=== PATIENT | female | born 1930 | race Caucasian/White ===

== ENCOUNTER 2018-03-11 18:27 | Inpatient (IN) | payer OTHER, MEDICARE ==
[2018-03-11 18:54] VITALS: BMI 21.1
[2018-03-11] MEDS ORDERED: ACETAMINOPHEN 1000 MG/100 ML VIAL (NON FORMULARY) IVPB ONE (19:18)
[2018-03-11] MEDS ORDERED: SODIUM CHLORIDE 0.9% 500 ML INFUS.BAG IV ONE (19:18)
--- NOTE | 2018-03-11 19:18 | PDOC ---
History of Present Illness <JamieKaterina - Last Filed: 03/11/18 21:41> - General History Source: Patient, Family Exam Limitations: Dementia - History of Present Illness Initial Comments: This is an 87 YOF with h/o recurrent UTI, falls, NIDDM, A-fib (on Eliquis), lung mass, endometrial CA, and C2 odontoid fracture (colalr placed but no surgical repair d/t osteoporosis) who p/w right hip pain s/p GLF at home at about 6 pm. Family note that she had an unwitnessed fall, which they believe was when she was trying to stand up from her bed. The daughter lives in the same home and notes that the patient was upstairs in her bedroom, then began pounding on the floor as she does whenever she falls. The patient has since been unable to walk or move her right leg at the hip. She normally ambulates alone without a walker or cane. The pain is isolated to the right groin ( patient points to inguinal crease). She felt "under the weather" all day today, with body aches, per the family. She was treated with Macrobid for a UTI up until last week. She had a few subsequent episodes of diarrhea but otherwise has not had any recent symptoms per the family. The patient herself is not able to provide the bulk of her medical history 2/2 suspected dementia. <RoxFarrah - Last Filed: 03/12/18 19:25> - General Chief Complaint: Injury Stated Complaint: FALL Time Seen by Provider: 03/11/18 18:46 Past History <JamieKaterina - Last Filed: 03/11/18 21:41> - Past Medical History Cancer: Yes (endometrial) Cardiac Disorders: Yes COPD: No Dementia: Yes Diabetes: Yes GI Disorders: Yes (gluten intolerance, HIATAL HERNIA) Disorders: Yes (prolapsed bladder, UTI) HTN: Yes Hypercholesterolemia: Yes - Surgical History Appendectomy: Yes - Immunization History Td Vaccination: Yes Immunization Up to Date: No - Suicide/Smoking/Psychosocial Hx Smoking Status: No Smoking History: Never smoked Have you smoked in the past 12 months: No Number of Cigarettes Smoked Daily: 0 Hx Alcohol Use: No Drug/Substance Use Hx: No Substance Use Type: None Hx Substance Use Treatment: No <RoxFarrah - Last Filed: 03/12/18 19:25> - Past Medical History Allergies/Adverse Reactions: Allergies Allergy/AdvReac Type Severity Reaction Status Date / Time lactose Allergy Verified 03/12/18 10:37 codeine [Codeine] AdvReac hyper Verified 03/11/18 18:41 Home Medications: Ambulatory Orders Calcium Carbonate/Vitamin D3 [Calcium 600-Vit D3 200 Tablet] 1 each PO DAILY #0 tablet 05/15/12 Cholecalciferol (Vitamin D3) [Vitamin D] 2,000 unit PO DAILY #0 tablet 05/15/12 Multivitamin [Multivitamins] 1 each PO DAILY #0 capsule 05/15/12 Cyanocobalamin [Vitamin B12 -] 1,000 mcg PO DAILY 12/14/14 Tramadol HCl 37.5 mg PO PRN 12/14/14 metFORMIN HCL [Glucophage -] 1,000 mg PO BID 12/14/14 Enalapril Maleate [Vasotec -] 20 mg PO BID 10/15/17 Rivaroxaban [Xarelto -] 20 mg PO DAILY 10/15/17 predniSONE [Deltasone -] 5 mg PO DAILY 10/15/17 Atorvastatin Ca [Lipitor] 10 mg PO HS 03/11/18 Gabapentin 100 mg PO BID 03/11/18 Sertraline HCl 25 mg PO BID 03/11/18 Trauma Specific PMHX - Complaint Specific PMHX Neck Injury: Yes <Farrah Gramajo - Last Filed: 03/12/18 19:25> Review of Systems - Review of Systems Able to Perform ROS?: No (dementia) <Gramajo,Farrah - Last Filed: 03/12/18 19:25> *Physical Exam - Vital Signs Last Vital Signs Temp Pulse Resp BP Pulse Ox 98.7 F 53 L 16 161/64 97 03/11/18 19:18 03/11/18 19:18 03/11/18 19:18 03/11/18 19:18 03/11/18 19:18 <Katerina Ayala - Last Filed: 03/11/18 21:41> - Vital Signs Last Vital Signs Temp Pulse Resp BP Pulse Ox 53 L 16 161/64 95 03/11/18 18:43 03/11/18 18:43 03/11/18 18:43 03/11/18 18:43 - Physical Exam General Appearance: Yes: Nourished, Other (nontoxic and well appearing elderly female, appears a bit younger than her stated age, appears comfortable at rest but winces in pain with any repositioning, answers simple questions appropriately but unable to provide ). No: Apparent Distress HEENT: positive: EOMI, SEDA, Normal ENT Inspection, Normal Voice, Hearing Grossly Normal, Other (no scalp contusion, no cephalohematoma, no scalp laceration, no raccoon eyes, no carmona sign, no hemotympanum, no CSF rhinorrhea/ otorrhea). negative: Scleral Icterus (R), Scleral Icterus (L), Nasal Congestion Neck: positive: Trachea midline, Supple. negative: Tender, Rigid Respiratory/Chest: positive: Lungs Clear, Normal Breath Sounds, Other (equal bilateral breath sounds, no flail chest). negative: Respiratory Distress, Crackles, Rhonchi, Stridor, Wheezing Cardiovascular: positive: Regular Rhythm, Regular Rate. negative: Murmur Vascular Pulses: Femoral (R): 2+, Femoral (L): 2+ Comments:: DP pulses 2+ and equal bilaterally Gastrointestinal/Abdominal: positive: Normal Bowel Sounds, Soft. negative: Tender, Organomegaly, Pulsatile Mass, Guarding Musculoskeletal: positive: Normal Inspection. negative: Decreased Range of Motion, Vertebral Tenderness Extremity: positive: Normal Capillary Refill, Normal Inspection, Normal Range of Motion, Other (RLE 1-cm shortening and mild external rotation, very painful with minimal ROM, pelvis stable, no thigh hematoma, moving all extremities, ). negative: Tender, Cyanosis Integumentary: positive: Normal Color, Dry, Warm. negative: Erythema, Rash, Bruising Neurologic: positive: resident athletic trainer II-XII NML intact, Alert, Normal Mood/Affect, Normal Response, Motor Strength 5/5, Responsive (normal), Confused. negative: Fully Oriented, EOM Palsy, Facial Droop, Numbness, Sensory Deficit <Farrah Gramajo - Last Filed: 03/12/18 19:25> Heart Score/ECG Review #1 SR rate of 60 with sinus arrhythmia, normal axis and intervals, no ischemic changes <Farrah Gramajo Last Filed: 03/12/18 19:25> ED Treatment Course - LABORATORY CBC & Chemistry Diagram: 03/11/18 19:27 03/11/18 19:27 - ADDITIONAL ORDERS Additional order review: Laboratory Results 03/11/18 03/11/18 03/11/18 19:27 19:27 19:27 PT with INR INR PTT (Actin FS) Sodium 140 Potassium 4.9 Chloride 104 Carbon Dioxide 30 Anion Gap 6 L BUN 23 H Creatinine 0.6 Creat Clearance w eGFR > 60 Random Glucose 113 H Calcium 9.3 Phosphorus 4.1 Magnesium 1.8 Total Bilirubin 0.4 AST 19 ALT 21 Alkaline Phosphatase 64 Creatine Kinase 29 Troponin I < 0.02 Total Protein 6.3 L Albumin 3.4 Blood Type A POSITIVE Antibody Screen Negative 03/11/18 19:27 PT with INR 11.00 INR 0.97 PTT (Actin FS) 26.0 L Sodium Potassium Chloride Carbon Dioxide Anion Gap BUN Creatinine Creat Clearance w eGFR Random Glucose Calcium Phosphorus Magnesium Total Bilirubin AST ALT Alkaline Phosphatase Creatine Kinase Troponin I Total Protein Albumin Blood Type Antibody Screen 03/11/18 19:27 RBC 4.54 MCV 87.8 MCHC 32.9 RDW 14.5 MPV 8.9 Neutrophils % 80.0 Lymphocytes % 12.8 Monocytes % 5.4 Eosinophils % 1.5 D Basophils % 0.3 - Medications Given in the ED: ED Medications Discontinued Medications Generic Name Dose Route Start Last Admin Trade Name Temoq PRN Reason Stop Dose Admin Acetaminophen 1,000 mg 03/11/18 19:18 03/11/18 20:01 Ofirmev Injection - IVPB 03/11/18 19:19 1,000 mg ONCE ONE Administration Sodium Chloride 1,000 ml 03/11/18 19:18 03/11/18 20:01 Normal Saline - IV 03/11/18 19:19 1,000 ml ONCE ONE Administration - Additional Consults Time Called: 21:41 (Paged ortho exceptional children's teacher) <Katerina Ayala - Last Filed: 03/11/18 21:41> - LABORATORY CBC & Chemistry Diagram: 03/12/18 06:10 03/12/18 06:10 <Farrah Gramajo - Last Filed: 03/12/18 19:25> Medical Decision Making - Medical Decision Making 03/11/18 19:21 Elderly patient p/w GLF with subsequent hip pain. Initial Vital Signs Pulse Resp BP Pulse Ox 53 L 16 161/64 95 03/11/18 18:43 03/11/18 18:43 03/11/18 18:43 03/11/18 18:43 Exam: As noted in Physical Exam section. DDX IBNLT: hip/pelvis/femur fxr, hip dislocation, thigh hematoma, compartment syndrome, sprain/strain, contusion, etc. W/U ordered: XR Rt hip/pelvis Head CT C-Spine CT CBCD CMP Cardiac Panel Coags T& S UA UCx EKG CXR TX ordered: [facility] NPO until further notice. CXR: nothing acute. XR Hip and Pelvis: Mildly displaced acute fractures through the right superior and inferior rami. C-spine CT: nothing acute; nonunion type II odontoid fracture as previously reported by patient; degenerative changes. Head CT: Possible right sphenoid sinusitis, otherwise nothing acute. Straight cath ordered for UA; will avoid placing Val[place] for now. Laboratory Tests 03/11/18 03/11/18 03/11/18 19:27 19:27 19:27 WBC 8.7 RBC 4.54 Hgb 13.1 Hct 39.9 MCV 87.8 MCH 28.9 MCHC 32.9 RDW 14.5 Plt Count 232 D MPV 8.9 Absolute Neuts (auto) 6.9 Neutrophils % 80.0 Lymphocytes % 12.8 Monocytes % 5.4 Eosinophils % 1.5 D Basophils % 0.3 Nucleated RBC % 0 PT with INR 11.00 INR 0.97 PTT (Actin FS) 26.0 L Sodium 140 Potassium 4.9 Chloride 104 Carbon Dioxide 30 Anion Gap 6 L BUN 23 H Creatinine 0.6 Creat Clearance w eGFR > 60 Random Glucose 113 H Calcium 9.3 Phosphorus 4.1 Magnesium 1.8 Total Bilirubin 0.4 AST 19 ALT 21 Alkaline Phosphatase 64 Creatine Kinase Troponin I Total Protein 6.3 L Albumin 3.4 Blood Type Antibody Screen 03/11/18 03/11/18 19:27 19:27 WBC RBC Hgb Hct MCV MCH MCHC RDW Plt Count MPV Absolute Neuts (auto) Neutrophils % Lymphocytes % Monocytes % Eosinophils % Basophils % Nucleated RBC % PT with INR INR PTT (Actin FS) Sodium Potassium Chloride Carbon Dioxide Anion Gap BUN Creatinine Creat Clearance w eGFR Random Glucose Calcium Phosphorus Magnesium Total Bilirubin AST ALT Alkaline Phosphatase Creatine Kinase 29 Troponin I < 0.02 Total Protein Albumin Blood Type A POSITIVE Antibody Screen Negative Reassessment: Exam unchanged, patient denies complaints at rest. ADMIT Page sent to orthopedist exceptional children's teacher. Spoke with orthopedist who agrees with plan for admission. Consult order placed to Ortho Dr. Puga; I spoke with Dr. Puga at 9:45 pm. Microblog sent to Bibi (admitting for Pts PCP). Spoke with Bibi; in agreement Pt to be admitted to Inpatient Med/Surg. Decision to Admit order placed to admitting team covering attending Dr. Wise. <Farrah Gramajo - Last Filed: 03/12/18 19:25> *DC/Admit/Observation/Transfer <Katerina Ayala - Last Filed: 03/11/18 21:41> - Discharge Dispostion Decision to Admit order: Yes <Farrah Gramajo - Last Filed: 03/12/18 19:25> Diagnosis at time of Disposition: Fall from ground level Pelvic fracture Qualifiers: Encounter type: initial encounter Pelvic bone location: unspecified part of pelvis Fracture type: closed Fracture alignment: nondisplaced Qualified Code(s) : S32.9XXA - Fracture of unspecified parts of lumbosacral spine and pelvis, initial encounter for closed fracture - Discharge Dispostion Condition at time of disposition: Guarded
[2018-03-11] MEDS ORDERED: ACETAMINOPHEN INJECTION 100 ML IVPB ONE (19:31)
[2018-03-11 19:38] LABS: BASO % 0.3 % (0-2.0); EOS % 1.5 % (0-4.5); HEMATOCRIT 39.9 % (32.4-45.2); HEMOGLOBIN 13.1 GM/dL (10.7-15.3); LYMPH % 12.8 % (8-40); MCH 28.9 pg (25.7-33.7); MCHC 32.9 g/dl (32.0-36.0); MEAN CELL VOLUME 87.8 fl (80-96); MEAN PLT VOLUME 8.9 fl (7.5-11.1); MONO % 5.4 % (3.8-10.2); PLATELET COUNT 232 K/MM3 (134-434); RBC 4.54 M/mm3 (3.60-5.2); RDW 14.5 % (11.6-15.6); WHITE BLOOD COUNT 8.7 K/mm3 (4.0-10.0)
[2018-03-11 19:51] LABS: INR 0.97 (0.82-1.09)
--- NOTE | 2018-03-11 19:55 | PDOC ---
Attending Attestation - HPI HPI: The patient is an 87 year old female with PMHx of recurrent UTI, falls, NIDDM, A -fib (on Eliquis), lung mass, endometrial CA, and C2 odontoid fracture (with collar placement) presenting with right hip pain s/p unwitnessed fall at home at around 6 pm. The patients daughter found her on her on the floor unable to ambulate or move right leg at hip. She normally ambulates with cane/walker. The patient also notes feeling under the weather all day with associated body aches. She also notes a few episodes for diarrhea. Medical history from patient is not sufficient due to suspected dementia. 03/12/18 00:17 <Katerina Ayala - Last Filed: 03/12/18 00:17> - Resident Resident Name: Farrah Gramajo - ED Attending Attestation I have performed the following: I have examined & evaluated the patient, The case was reviewed & discussed with the resident, I agree w/resident's findings & plan, Exceptions are as noted - Physicial Exam PE: GENERAL: Awake, alert, and fully oriented, in no acute distress HEAD: No signs of trauma EYES: PERRLA, EOMI, sclera anicteric, conjunctiva clear ENT: Auricles normal inspection, hearing grossly normal, nares patent, oropharynx clear without exudates. Moist mucosa NECK: Normal ROM, supple, no lymphadenopathy, JVD, or masses LUNGS: Breath sounds equal, clear to auscultation bilaterally. No wheezes, and no crackles HEART: Regular rate and rhythm, normal S1 and S2, no murmurs, rubs or gallops ABDOMEN: Soft, nontender, normoactive bowel sounds. No guarding, no rebound. No masses. +Tenderness to the R groin/pelvis. EXTREMITIES: Normal range of motion, no edema. No clubbing or cyanosis. No cords, erythema, or tenderness NEUROLOGICAL: Cranial nerves II through XII grossly intact. Normal speech. Motor and sensation intact. Gait not tested due to nature of complaint. SKIN: Warm, Dry, normal turgor, no rashes or lesions noted. - Medical Decision Making Patient with R pelvic fracture, will plan for admission. Will obtain labs and urine. <Mari Keen - Last Filed: 03/12/18 00:24>
[2018-03-11 20:06] LABS: ALBUMIN 3.4 g/dl (3.4-5.0); ALK PHOS 64 U/L (45-117); ANION GAP 6 (8-16); BILIRUBIN,TOTAL 0.4 mg/dL (0.2-1.0); BLOOD UREA NITROGEN 23 mg/dL (7-18); CALCIUM 9.3 mg/dL (8.5-10.1); CHLORIDE 104 mmol/L (98-107); CO2 30 mmol/L (21-32); CREATININE 0.6 mg/dL (0.55-1.02); GLUCOSE,RANDOM 113 mg/dL (74-106); MAGNESIUM 1.8 mg/dL (1.8-2.4); PHOSPHOROUS 4.1 mg/dL (2.5-4.9); POTASSIUM 4.9 mmol/L (3.5-5.1); SGOT/AST 19 U/L (15-37); SGPT/ALT 21 U/L (12-78); SODIUM 140 mmol/L (136-145); TOT PROT 6.3 g/dl (6.4-8.2)
[2018-03-11] MEDS ORDERED: traMADol HCL 50 MG TABLET PO ONE (21:51)
[2018-03-11 22:18] LABS: URINE APPEARANCE SLCLOUDY; URINE BILIRUBIN NEGATIVE (<2.0 mg/dL); URINE COLOR AMBER; URINE GLUCOSE (UA) NEGATIVE (NEGATIVE); URINE KETONE NEGATIVE (NEGATIVE); URINE NITRITE NEGATIVE (NEGATIVE); URINE UROBILINOGEN NEGATIVE mg/dL (0.2-1.0)
[2018-03-11] MEDS ORDERED: traMADol HCL 50 MG TABLET ONE (22:18)
[2018-03-11 22:20] LABS: URINE LEUK ESTERASE 1+ (NEGATIVE); URINE PROTEIN 2+ (NEGATIVE)
[2018-03-11 22:21] LABS: EPI CELLS RARE /HPF (FEW); URINE MUCUS RARE
--- NOTE | 2018-03-11 23:19 | PN ---
Teaching Attending Note Name of Resident: La Soares ATTENDING PHYSICIAN STATEMENT I saw and evaluated the patient. I reviewed the resident's note and discussed the case with the resident. I agree with the resident's findings and plan as documented. SUBJECTIVE: Patient is an 87 year old woman with history of recurrent UTI, falls, NIDDM, A- fib (on Eliquis), lung mass, endometrial CA, and C2 odontoid fracture (colalr placed but no surgical repair d/t osteoporosis) who p/w right hip pain s/p GLF at home at about 6 pm. Family note that she had an unwitnessed fall, which they believe was when she was trying to stand up from her bed. The daughter lives in the same home and notes that the patient was upstairs in her bedroom, then began pounding on the floor as she does whenever she falls. The patient has since been unable to walk or move her right leg at the hip. She normally ambulates alone without a walker or cane. The pain is isolated to the right groin (patient points to inguinal crease). She felt "under the weather" all day today, with body aches, per the family. She was treated with Macrobid for a UTI up until last week. She had a few subsequent episodes of diarrhea but otherwise has not had any recent symptoms per the family. The patient herself is not able to provide the bulk of her medical history due to suspected dementia. OBJECTIVE: Alert and in pain with minimal movement Vital Signs Period Temp Pulse Resp BP Sys/Castelan Pulse Ox Last 24 Hr 98.7 F 53-53 16-16 161-161/64-64 95-97 HEENT: No Jaundice, eye redness or discharge, PERRLA, EOMI. Normocephalic, atraumatic. External ears are normal and hearing is grossly intact. No nasal discharge. Neck: Supple, nontender. No palpable adenopathy or thyromegaly. No JVD Chest: Good effort. Clear to auscultation and percussion. Heart: Regular. No S3, rub or murmur Abdomen: Not distended, soft, nontender and no HSM. No rebound or guarding. Normoactive bowel sounds. Ext: Peripheral pulses intact. Tender right hip with limited ROM. Distal sensory and motor function intact. No edema. Skin: Warm and dry. No petechiae, rash or ecchymosis. Neuro: Alert. Oriented to person and place. CN 2-12 grossly intact. Sensation grossly intact in all four extremities and DTR are symmetric. Home Medications Medication Instructions Recorded Calcium Carbonate/Vitamin D3 1 each PO DAILY #0 tablet 05/15/12 [Calcium 600-Vit D3 200 Tablet] Cholecalciferol (Vitamin D3) 2,000 unit PO DAILY #0 tablet 05/15/12 [Vitamin D] Multivitamin [Multivitamins] 1 each PO DAILY #0 capsule 05/15/12 Cyanocobalamin [Vitamin B12 -] 1,000 mcg PO DAILY 12/14/14 Tramadol HCl 37.5 mg PO PRN 12/14/14 metFORMIN HCL [Glucophage -] 1,000 mg PO BID 12/14/14 Enalapril Maleate [Vasotec -] 20 mg PO BID 10/15/17 Rivaroxaban [Xarelto -] 20 mg PO DAILY 10/15/17 predniSONE [Deltasone -] 5 mg PO DAILY 10/15/17 Atorvastatin Ca [Lipitor] 10 mg PO HS 03/11/18 Gabapentin 100 mg PO BID 03/11/18 Sertraline HCl 25 mg PO BID 03/11/18 Abnormal Lab Results 03/11/18 03/11/18 03/11/18 19:27 19:27 22:10 PTT (Actin FS) 26.0 L Anion Gap 6 L BUN 23 H Random Glucose 113 H Total Protein 6.3 L Urine Protein 2+ H Ur Leukocyte Esterase 1+ H ASSESSMENT AND PLAN: 1. Right Hip Fracture - Likely mechanical fall. No obvious evidence of head trauma. Official report of CT scan for precise localization of fracture is pending. Ortho consulted already. Results of head and C-spine CT pending. Continue to monitor closely for any internal bleeding since she is on elquis. Continue pain control, NPO and gentle IVF. 2. Afib - Rate controlled. On Eliquis - will hold eliquis once a decision is made for surgery. 3. UTI - No historical urine culture available. Will treat with Rocephin 1 gm IV q 24 hours pending culture report. 4. DVT prophylaxis - On Eliquis 5. Advance directives - Full code
[2018-03-12] MEDS ORDERED: ACETAMINOPHEN 1000 MG/100 ML VIAL (NON FORMULARY) IVPB PRN (02:44)
[2018-03-12] MEDS: DEXTROSE 5%-NORMAL SALINE 1,000 ML IV SCH ×2 (03:56→23:36)
[2018-03-12] MEDS: INSULIN SLIDING SCALE (NOVOLOG) 1 VIAL SQ SCH ×3 (06:26→16:48)
--- NOTE | 2018-03-12 06:28 | HP ---
CHIEF COMPLAINT: "right hip pain" PCP: HISTORY OF PRESENT ILLNESS: Pt. had an unwitnessed fall around 6pm (03/11/18). Pt. was upstairs and the daughter was downstairs, immediately heard the fall and ran to investigate. Pt. and daughter claim there was no loss of consciousness. Pt. denies any prodromal symptoms before the fall. Pt had been feeling under the weather, recently treated for UTI w/ Macrobid. Pt. normally walks around the house without assistance but has since been unable to move.She has had a few episodes of diarrhea but otherwise asymptomatic. ER course was notable for: (1)Head and Cpine CT, Hip/Pelvis XR (2)Given IV Tylenol, Tramadol (3)EKG (4) Straight Cath, UA Recent Travel: Did not ask PAST MEDICAL HISTORY: recurrent UTIs, recurrent falls, DM2, Afib( on Xarelto), lung mass, s/p endometrial CA, C2 ondontoid fracture, Overflow Incontinence PAST SURGICAL HISTORY: Hysterectomy, appendectomy Social History: Smoking: No Alcohol: No Drugs: No Family History: None Allergies codeine [Codeine] Adverse Reaction (Verified 03/11/18 18:41) hyper gluten Adverse Reaction (Verified 03/11/18 18:41) abd pain, diarrhea HOME MEDICATIONS: Home Medications Medication Instructions Recorded Calcium Carbonate/Vitamin D3 1 each PO DAILY #0 tablet 05/15/12 [Calcium 600-Vit D3 200 Tablet] Cholecalciferol (Vitamin D3) 2,000 unit PO DAILY #0 tablet 05/15/12 [Vitamin D] Multivitamin [Multivitamins] 1 each PO DAILY #0 capsule 05/15/12 Cyanocobalamin [Vitamin B12 -] 1,000 mcg PO DAILY 12/14/14 Tramadol HCl 37.5 mg PO PRN 12/14/14 metFORMIN HCL [Glucophage -] 1,000 mg PO BID 12/14/14 Enalapril Maleate [Vasotec -] 20 mg PO BID 10/15/17 Rivaroxaban [Xarelto -] 20 mg PO DAILY 10/15/17 predniSONE [Deltasone -] 5 mg PO DAILY 10/15/17 Atorvastatin Ca [Lipitor] 10 mg PO HS 03/11/18 Gabapentin 100 mg PO BID 03/11/18 Sertraline HCl 25 mg PO BID 03/11/18 REVIEW OF SYSTEMS CONSTITUTIONAL: generalized weakness, malaise Absent: fever, chills, diaphoresis, loss of appetite, weight change HEENT: Absent: rhinorrhea, nasal congestion, throat pain, throat swelling, difficulty swallowing, mouth swelling, ear pain, eye pain, visual changes CARDIOVASCULAR: Absent: chest pain, syncope, palpitations, irregular heart rate, lightheadedness , peripheral edema RESPIRATORY: Absent: cough, shortness of breath, dyspnea with exertion, orthopnea, wheezing, stridor, hemoptysis GASTROINTESTINAL:diarrhea Absent: abdominal pain, abdominal distension, nausea, vomiting, constipation, melena, hematochezia GENITOURINARY: urinary retention Absent: dysuria, frequency, urgency, hesitancy, hematuria, flank pain, genital pain MUSCULOSKELETAL: right hip pain Absent: myalgia, arthralgia, joint swelling, back pain, neck pain SKIN: Absent: rash, itching, pallor HEMATOLOGIC/IMMUNOLOGIC: Absent: easy bleeding, easy bruising, lymphadenopathy, frequent infections ENDOCRINE: Absent: unexplained weight gain, unexplained weight loss, heat intolerance, cold intolerance NEUROLOGIC: bladder incontinence Absent: headache, focal weakness or paresthesias, dizziness, unsteady gait, seizure, mental status changes, PSYCHIATRIC: Absent: anxiety, depression, suicidal or homicidal ideation, hallucinations. PHYSICAL EXAMINATION Vital Signs - 24 hr 03/11/18 03/11/18 03/11/18 18:43 19:18 21:47 Temperature 98.7 F Pulse Rate 53 L Pulse Rate [ 53 L Left Radial] Respiratory 16 16 18 Rate Blood Pressure 161/64 Blood Pressure 161/64 [Left Arm] O2 Sat by Pulse 95 97 98 Oximetry (%) 03/11/18 03/12/18 03/12/18 23:42 01:01 05:40 Temperature 98.4 F 98.4 F 98 F Pulse Rate 64 66 Pulse Rate [ 59 L Left Radial] Respiratory 16 18 18 Rate Blood Pressure 153/77 145/74 Blood Pressure 156/95 [Left Arm] O2 Sat by Pulse 96 Oximetry (%) GENERAL: Awake, alert, in no acute distress, mild dementia and confusion HEAD: Normal with no signs of trauma, small hematoma above ear. EYES: Pupils equal, round and reactive to light, extraocular movements intact, sclera anicteric, conjunctiva clear. EARS, NOSE, THROAT: nares patent, oropharynx clear without exudates. Moist mucous membranes. NECK: Normal range of motion-limited exam, supple without lymphadenopathy, no tenderness to palpation LUNGS: Breath sounds equal, clear to auscultation bilaterally. No wheezes, and no crackles. No accessory muscle use.- limited exam, Pt. unable to sit up HEART: Regular rate and rhythm, normal S1 and S2 without murmur ABDOMEN: Soft, RLQ +suprepubic tenderness to palpation, not distended, normoactive bowel sounds MUSCULOSKELETAL: Normal range of motion at all joints. No bony deformities or tenderness. No CVA tenderness. UPPER EXTREMITIES: 5/5 strength, warm, well-perfused, sensation to touch in tact. No cyanosis. No clubbing. No peripheral edema. LOWER EXTREMITIES: 2+ dorsal pulses, 5/5 strength, sensation to touch in tact, cool, well-perfused. No calf tenderness. No peripheral edema. Passively flexed knee to 90 degrees and hip 30-40 degrees off the bed. NEUROLOGICAL: Cranial nerves II-XII intact. Normal speech. PSYCHIATRIC: Cooperative. Good eye contact. Appropriate mood and affect. SKIN: Warm, dry, normal turgor Laboratory Results - last 24 hr 03/11/18 03/11/18 03/11/18 19:27 19:27 19:27 WBC 8.7 RBC 4.54 Hgb 13.1 Hct 39.9 MCV 87.8 MCH 28.9 MCHC 32.9 RDW 14.5 Plt Count 232 D MPV 8.9 Absolute Neuts (auto) 6.9 Neutrophils % 80.0 Lymphocytes % 12.8 Monocytes % 5.4 Eosinophils % 1.5 D Basophils % 0.3 Nucleated RBC % 0 PT with INR 11.00 INR 0.97 PTT (Actin FS) 26.0 L Sodium 140 Potassium 4.9 Chloride 104 Carbon Dioxide 30 Anion Gap 6 L BUN 23 H Creatinine 0.6 Creat Clearance w eGFR > 60 Random Glucose 113 H Calcium 9.3 Phosphorus 4.1 Magnesium 1.8 Total Bilirubin 0.4 AST 19 ALT 21 Alkaline Phosphatase 64 Creatine Kinase Troponin I Total Protein 6.3 L Albumin 3.4 Urine Color Urine Appearance Urine pH Ur Specific [place] Urine Protein Urine Glucose (UA) Urine Ketones Urine Blood Urine Nitrite Urine Bilirubin Urine Urobilinogen Ur Leukocyte Esterase Urine WBC (Auto) Urine RBC (Auto) Ur Epithelial Cells Urine Mucus Blood Type Antibody Screen 03/11/18 03/11/18 03/11/18 19:27 19:27 22:10 WBC RBC Hgb Hct MCV MCH MCHC RDW Plt Count MPV Absolute Neuts (auto) Neutrophils % Lymphocytes % Monocytes % Eosinophils % Basophils % Nucleated RBC % PT with INR INR PTT (Actin FS) Sodium Potassium Chloride Carbon Dioxide Anion Gap BUN Creatinine Creat Clearance w eGFR Random Glucose Calcium Phosphorus Magnesium Total Bilirubin AST ALT Alkaline Phosphatase Creatine Kinase 29 Troponin I < 0.02 Total Protein Albumin Urine Color Chantelle Urine Appearance Slcloudy Urine pH 5.0 D Ur Specific [place] 1.019 Urine Protein 2+ H Urine Glucose (UA) Negative Urine Ketones Negative Urine Blood Negative Urine Nitrite Negative Urine Bilirubin Negative Urine Urobilinogen Negative Ur Leukocyte Esterase 1+ H Urine WBC (Auto) 74 Urine RBC (Auto) 24 Ur Epithelial Cells Rare Urine Mucus Rare Blood Type A POSITIVE Antibody Screen Negative ASSESSMENT/PLAN: An 87 y.o. female w/ PMHx. for recurrent UTIs, recurrent falls, DM2, Afib( on Xarelto), lung mass, s/p endometrial CA, C2 ondontoid fracture, Overflow Incontinence, presents to the ED s/p unwitnessed fall. #UTI -f/u UCx. -sensitivities -Empiric Abx. -bladder scan -suprapubic tenderness -hx. of overflow incontinence #Right Hip Pain -f/u pelvic XR -PRN tramadol and tylenol -Pt -Orthopedic consult #syncope -orthostatics -consult neurology -negative CT head and Cspine -admit to Tele #DM2 -BGM -sliding scal -f/u HgBA1c #Osteoporosis -resume home medications -f/u outpatient for Dexa scan #Dispo -admit to Tele #DVT PPx. -xarelto Visit type - Emergency Visit Emergency Visit: Yes ED Registration Date: 03/11/18 Care time: The patient presented to the Emergency Department on the above date and was hospitalized for further evaluation of their emergent condition. - New Patient This patient is new to me today: Yes Date on this admission: 03/14/18 - Critical Care Critical Care patient: No Hospitalist Screening - Colonoscopy Questionnaire Colonoscopy Questionnaire: Colonoscopy Questionnaire - Patient: 50 - 75 years old and never had a screening colonoscopy: No History of colon or rectal polyps, or CA: Unknown History of IBD, Crohn's disease or UC: Unknown History of abdominal radiation therapy as a child: Unknown - Relative: 1 with colon or rectal CA, or polyps at age 60 or younger: Unknown Colon or rectal CA diagnosed at age 45 or younger: Unknown Multiple relatives with colon or rectal CA: Unknown - Outcome: Screening Result: Negative Screen
[2018-03-12 07:29] LABS: BASO % 0.3 % (0-2.0); EOS % 0.6 % (0-4.5); HEMATOCRIT 33.5 % (32.4-45.2); HEMOGLOBIN 11.4 GM/dL (10.7-15.3); LYMPH % 10.4 % (8-40); MCH 29.5 pg (25.7-33.7); MEAN CELL VOLUME 86.6 fl (80-96); MEAN PLT VOLUME 8.7 fl (7.5-11.1); NEUT % 80.7 % (42.8-82.8); PLATELET COUNT 184 K/MM3 (134-434); RBC 3.87 M/mm3 (3.60-5.2); WHITE BLOOD COUNT 7.9 K/mm3 (4.0-10.0)
--- NOTE | 2018-03-12 08:34 | EKG ---
Test Reason : Blood Pressure : / mmHG Vent. Rate : 060 BPM Atrial Rate : 060 BPM P-R Int : 196 ms QRS Dur : 082 ms QT Int : 420 ms P-R-T Axes : 072 027 052 degrees QTc Int : 420 ms SINUS RHYTHM WITH MARKED SINUS ARRHYTHMIA OTHERWISE NORMAL ECG WHEN COMPARED WITH ECG OF 15-OCT-2017 13:36, PREMATURE ATRIAL COMPLEXES ARE NO LONGER PRESENT Confirmed by ACACIA KHAN, LIBBY ([id number]) on 03/12/2018 8:34:01 AM Referred By: Confirmed By:LIBBY ROGER MD
[2018-03-12 08:37] LABS: CHLORIDE 105 mmol/L (98-107); POTASSIUM 4.2 mmol/L (3.5-5.1); SODIUM 139 mmol/L (136-145)
[2018-03-12 08:43] LABS: GLUCOSE,RANDOM 134 mg/dL (74-106)
[2018-03-12 08:44] LABS: ALBUMIN 2.8 g/dl (3.4-5.0); ALK PHOS 52 U/L (45-117); ANION GAP 6 (8-16); BILIRUBIN,TOTAL 0.4 mg/dL (0.2-1.0); BLOOD UREA NITROGEN 21 mg/dL (7-18); CALCIUM 8.2 mg/dL (8.5-10.1); CO2 28 mmol/L (21-32); CREATININE 0.6 mg/dL (0.55-1.02); MAGNESIUM 1.6 mg/dL (1.8-2.4); PHOSPHOROUS 3.7 mg/dL (2.5-4.9); SGOT/AST 17 U/L (15-37); SGPT/ALT 18 U/L (12-78); TOT PROT 5.2 g/dl (6.4-8.2)
[2018-03-12] MEDS: traMADol HCL 50 MG TABLET PO PRN (08:50)
--- NOTE | 2018-03-12 09:16 | PN ---
Progress Note (short form) - Note Progress Note: consult dictated pelvic fxs on CT/xray no hip fracture no surgical intervention start partial weight bearing PT monitor h/h as pt is going to lose more blood than usual due to NOAC
[2018-03-12] MEDS ORDERED: PNEUMOC 13-VAL CONJ-DIP CRM/PF 0.5 ML DISP.SYRIN IM ONE (10:00)
[2018-03-12] MEDS: SERTRALINE HCL 25 MG TABLET (FP) PO SCH ×2 (10:11→23:05)
[2018-03-12] MEDS: GABAPENTIN 100 MG CAPSULE (FP) PO SCH ×2 (10:11→23:05)
[2018-03-12] MEDS ORDERED: traMADol HCL 50 MG TABLET PO SCH (10:30)
--- NOTE | 2018-03-12 10:32 | PN ---
Progress Note, Physician Chief Complaint: C/O Rt Hip pain History of Present Illness: 87 yrs old F lives at home multiple co-morbidities T2DM, Paroxysmal A-fib on AC ( Eliquis), lung mass, endometrial CA, and C2 odontoid fracture (with collar placement) presented to Ed S/P unwitnessed fall at home at around 6 pm, patients daughter found her on her on the floor unable to ambulate or move right leg at hip. Patient normally ambulates with cane/walker, denies any head trauma or neck pain imaging shows Rt Inf and Sup Pubic rami fracture , evaluated by Ortho recommended no intervention, start weight wearing ambulation.. - Current Medication List Current Medications: Active Medications Acetaminophen (Ofirmev Injection -) 1,000 mg IVPB Q6H PRN PRN Reason: PAIN LEVEL 6-10 Atorvastatin Calcium (Lipitor -) 10 mg PO HS JASON Gabapentin (Neurontin -) 100 mg PO BID [facility] Last Admin: 03/12/18 10:11 Dose: 100 mg Dextrose/Sodium Chloride (D5-Ns -) 1,000 mls @ 42 mls/hr IV ASDIR [facility] Last Admin: 03/12/18 03:56 Dose: 42 mls/hr Insulin Aspart (Novolog Vial Sliding Scale -) 1 vial SQ ACHS [facility]; Protocol Last Admin: 03/12/18 06:26 Dose: Not Given Non-Formulary Medication (Calcium Carbonate/Vitamin D3 [Calcium 600-Vit D3 200 Tablet]) 1 each PO DAILY [facility] Non-Formulary Medication (Cholecalciferol (Vitamin D3) [Vitamin D]) 2,000 unit PO DAILY [facility] Non-Formulary Medication (Multivitamin [Multivitamins]) 1 each PO DAILY [facility] Prednisone (Deltasone -) 5 mg PO DAILY JASON Sertraline HCl (Zoloft -) 25 mg PO BID [facility] Last Admin: 03/12/18 10:11 Dose: 25 mg Tramadol HCl (Ultram -) 50 mg PO Q8H PRN PRN Reason: PAIN LEVEL 1-5 Last Admin: 03/12/18 08:50 Dose: 50 mg - Objective Vital Signs: Vital Signs Temperature 98 F 03/12/18 05:40 Pulse Rate 66 03/12/18 05:40 Respiratory Rate 18 03/12/18 05:40 Blood Pressure 145/74 03/12/18 05:40 O2 Sat by Pulse Oximetry (%) 96 03/11/18 23:42 Elderly F not in acute distress c/o Rt Hip Pian HEENT: Mm moist, no anemia, PERRLA EOMI NECK; in Collar denies any worsening pain CHEST: CTA B/L CVS: S1S2 Irr ABDL No distention, non tender Bs + EXT; Rt Pelvic are tenderness in groin, Pulse +, no Edema feet [employer]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 Labs: CBC, BMP 03/12/18 06:10 03/12/18 06:10 INR, PTT INR 0.97 (0.82-1.09) 03/11/18 19:27 Problem List - Problems (1) Fall from ground level Assessment/Plan: H/O multiple due to poor gait stability, unwitnessed fall bur denies any head trauma or LOC, non compliant with walker, fall precautions, CT head -ve for any ICH Code(s): W18.30XA - FALL ON SAME LEVEL, UNSPECIFIED, INITIAL ENCOUNTER (2) Pubic ramus fracture Code(s): S32.599A - OTH FRACTURE OF UNSP PUBIS, INIT ENCNTR FOR CLOSED FRACTURE Qualifiers: Fracture type: closed Laterality: right (3) T2DM (type 2 diabetes mellitus) Assessment/Plan: Hold Metformin cont Novalog coverage F/U HBa1C Code(s): E11.9 - TYPE 2 DIABETES MELLITUS WITHOUT COMPLICATIONS (4) Dehydration Assessment/Plan: Elevated BUN IV Hydration F/U BMP in am Code(s): E86.0 - DEHYDRATION (5) Hypertension Assessment/Plan: Well controlled cont all home meds Code(s): I10 - ESSENTIAL (PRIMARY) HYPERTENSION (6) Paroxysmal atrial fibrillation Assessment/Plan: At present in NSR rate controlled AC on Hold for fall will F/U with Cardiology consult. Code(s): I48.0 - PAROXYSMAL ATRIAL FIBRILLATION
--- NOTE | 2018-03-12 12:05 | CONS ---
DATE OF CONSULTATION: 03/12/2018 CHIEF COMPLAINT: Right pelvic fracture. HISTORY OF PRESENT ILLNESS: This is a pleasant 87-year-old female who is seen with her daughter at the bedside. This is a patient who suffered a fall at home last night. The patient had fallen while her daughter was home, but not in her direct view. She was brought to the ER, where she was found to have superior and inferior pubic rami fractures. She was admitted for further care. At the time of examination, the patient complains of right-sided pain in the groin and radiating to the buttock. She denies any radiating pain down the leg or numbness or tingling. She denies any upper extremity pain or pain elsewhere. She typically ambulates without the use of an assistive device. PAST MEDICAL HISTORY: Significant for recurrent UTIs, diabetes, atrial fibrillation, endometrial cancer, C2 fracture. PAST SURGICAL HISTORY: Noncontributory. MEDICATIONS: Eliquis and also others reviewed in chart. PHYSICAL EXAMINATION: General: This is a well-appearing female in no acute distress. She is seen lying in the hospital bed. She is alert and answers questions appropriately, but is somewhat forgetful of the conversation. Extremities: Examination of the right lower extremity demonstrates no gross deformity. There is pain with any motion of the hip. There is no tenderness about the knee or the ankle. Distally, sensation is intact to light touch. Two-plus DP pulse. EHL, FHL are intact. CT and plain films are reviewed. There are displaced fractures of the superior and inferior pubic rami. ASSESSMENT: Right-sided pelvic fractures. PLAN: I reviewed today's findings with the patient and her daughter. I advised that she has a pelvic fracture. I also advised that these types of fractures are treated nonoperatively. The most important thing is to start early physical therapy. She will be partial weightbearing at this time. We discussed the importance of fall prevention. She has had multiple falls and is at risk for further falls. She should be using an assistive device full-time, probably a walker, but that can be evaluated as she progresses with physical therapy. Her hemoglobin and hematocrit should be monitored carefully, as she is at risk for drop due to her anticoagulation. She should have a followup x-ray in about 2 weeks. MADISON JOHNSON M.D. [id number]
[2018-03-12] MEDS ORDERED: INSULIN (NOVOLOG) ASPART 100 UNITS/ML 10ML VIAL ONE (12:19)
[2018-03-12] MEDS ORDERED: INSULIN (NOVOLOG) ASPART 100 UNITS/ML 10ML VIAL SQ ONE (12:30)
--- NOTE | 2018-03-12 12:46 | CONSULT ---
Consult Consult Specialty:: Cardiology (Dr. Estrella for Dr. Antunez) Referred by:: Medicine Reason for Consultation:: Afib - History of Present Illness Chief Complaint: Right hip pain History of Present Illness: 87 yo female Known to Dr. Antunez as outpatient Known h/o HTN, NIDDM, early dementia, PAD and prior CVA Has AFib on NOAC (previously on Apixaban 2.5mg BID now on Riveroxaban) with well documented discussion of risks/benefits of AC in her given her frequent falls Has prior C2 fracture from prior vasovagal episode Now admitted from ED after fall Was reaching for object in her bedroom and holding on to a door and slipped down Fractured her right hip Currently she denies any chest pain or dyspena. 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 Cardio/Vascular: Yes: HTN, Hyperlipdemia, Pulmonary Hypertension ...: No Endocrine: Yes: Diabetes Mellitus - Alcohol/Substance Use Hx Alcohol Use: No - Smoking History Smoking history: Never smoked Have you smoked in the past 12 months: No Aproximately how many cigarettes per day: 0 - Social History ADL: Independent History of Recent Travel: No Home Medications - Allergies Allergies/Adverse Reactions: Allergies Allergy/AdvReac Type Severity Reaction Status Date / Time lactose Allergy Verified 03/12/18 10:37 codeine [Codeine] AdvReac hyper Verified 03/11/18 18:41 - Home Medications Home Medications: Ambulatory Orders Calcium Carbonate/Vitamin D3 [Calcium 600-Vit D3 200 Tablet] 1 each PO DAILY #0 tablet 05/15/12 Cholecalciferol (Vitamin D3) [Vitamin D] 2,000 unit PO DAILY #0 tablet 05/15/12 Multivitamin [Multivitamins] 1 each PO DAILY #0 capsule 05/15/12 Cyanocobalamin [Vitamin B12 -] 1,000 mcg PO DAILY 12/14/14 Tramadol HCl 37.5 mg PO PRN 12/14/14 metFORMIN HCL [Glucophage -] 1,000 mg PO BID 12/14/14 Enalapril Maleate [Vasotec -] 20 mg PO BID 10/15/17 Rivaroxaban [Xarelto -] 20 mg PO DAILY 10/15/17 predniSONE [Deltasone -] 5 mg PO DAILY 10/15/17 Atorvastatin Ca [Lipitor] 10 mg PO HS 03/11/18 Gabapentin 100 mg PO BID 03/11/18 Sertraline HCl 25 mg PO BID 03/11/18 Family Disease History - Family Disease History Family History: Unremarkable Review of Systems - Review of Systems Constitutional: reports: No Symptoms Eyes: reports: No Symptoms HENT: reports: No Symptoms Neck: reports: No Symptoms Cardiovascular: reports: No Symptoms Respiratory: reports: No Symptoms Gastrointestinal: reports: No Symptoms Musculoskeletal: reports: No Symptoms Integumentary: reports: No Symptoms Physical Exam Vital Signs: Vital Signs Temperature 98.6 F 03/12/18 10:00 Pulse Rate 69 03/12/18 10:00 Respiratory Rate 18 03/12/18 10:00 Blood Pressure 157/79 03/12/18 10:00 O2 Sat by Pulse Oximetry (%) 96 03/12/18 09:00 Constitutional: Yes: Well Nourished, No Distress Eyes: Yes: WNL HENT: Yes: WNL Neck: Yes: WNL Cardiovascular: Yes: Regular Rate and Rhythm Respiratory: Yes: WNL Gastrointestinal: Yes: WNL Musculoskeletal: Yes: Other (Right hip pain) Extremities: Yes: WNL Edema: No Labs: CBC, BMP 03/12/18 06:10 03/12/18 06:10 Imaging - Results X-ray: Report Reviewed (Mildly displaced acute Rt Inf and Sup Pubic rami fracture) EKG: Image Reviewed (Done 03/11/2018 at 19:21 SR at 60/min with PAC) Assessment/Plan 87 yo F known AF on NOAC Now s/p fall with right mildly displaced fracture 1) Hip Fracture -Stable from cardiovascular perspective - Evaluated by Ortho recommended no intervention, start weight wearing ambulation. -Would continue NOAC - AFib is well controlled - Need re-discussion of risks/benefits of AC with Dr. Antunez and family in her given frequent falls.
[2018-03-12] MEDS: ENALAPRIL MALEATE 10 MG TABLET (FP) PO SCH ×2 (13:28→23:05)
[2018-03-12] MEDS: ATORVASTATIN CA 40 MG TABLET (FP) PO SCH (23:05)
[2018-03-13] MEDS: DEXTROSE 5%-NORMAL SALINE 1,000 ML IV SCH (04:55)
[2018-03-13] MEDS: traMADol HCL 50 MG TABLET PO PRN (04:59)
[2018-03-13] MEDS: INSULIN SLIDING SCALE (NOVOLOG) 1 VIAL SQ SCH ×3 (06:38→16:45)
[2018-03-13 07:36] LABS: INR 1.13 (0.82-1.09); PROTHROMBIN TIME (PATIENT) 12.8 SEC (9.7-13.0)
[2018-03-13] MEDS: SERTRALINE HCL 25 MG TABLET (FP) PO SCH ×2 (09:48→22:16)
[2018-03-13] MEDS: GABAPENTIN 100 MG CAPSULE (FP) PO SCH ×2 (09:48→22:16)
[2018-03-13] MEDS: predniSONE 5 MG TABLET (UD) PO SCH (09:48)
[2018-03-13] MEDS: MULTIVITAMINS (DAILY MVI) TABLET (FP) PO SCH (09:48)
[2018-03-13] MEDS: CHOLECALCIFEROL (VITAMIN D3) 1,000 UNIT TABLET (FP) PO SCH (09:48)
[2018-03-13] MEDS: ENALAPRIL MALEATE 10 MG TABLET (FP) PO SCH ×2 (09:48→22:16)
[2018-03-13] MEDS: CALCIUM 500MG/VIT-D 200 UNITS COMBO TABLET (FP) PO SCH (09:48)
[2018-03-13] MEDS ORDERED: traMADol HCL 50 MG TABLET PO PRN ×2 (10:15→16:35)
[2018-03-13] MEDS ORDERED: DEXTROSE 5%-WATER - 50 ML IVPB ONE (10:22)
[2018-03-13] MEDS ORDERED: cefTRIAXone SODIUM 1 GM VIAL ONE (10:22)
--- NOTE | 2018-03-13 10:27 | PN ---
Progress Note, Physician Chief Complaint: Pt lying in bed in no acute distress. reports right pelvic pain is tolerable. denies any chest pain, sob, n/v/d - Current Medication List Current Medications: Active Medications Acetaminophen (Tylenol -) 650 mg PO Q6H PRN PRN Reason: PAIN LEVEL 1-5 Atorvastatin Calcium (Lipitor -) 10 mg PO HS [facility] Last Admin: 03/12/18 23:05 Dose: 10 mg Calcium Carbonate/Cholecalciferol (Os-Tam 500+D -) 1 tab PO DAILY [facility] Last Admin: 03/13/18 09:48 Dose: 1 tab Cholecalciferol (Vitamin D3 -) 2,000 unit PO DAILY [facility] Last Admin: 03/13/18 09:48 Dose: 2,000 unit Enalapril Maleate (Vasotec -) 20 mg PO BID [facility] Last Admin: 03/13/18 09:48 Dose: 20 mg Gabapentin (Neurontin -) 100 mg PO BID [facility] Last Admin: 03/13/18 09:48 Dose: 100 mg Dextrose/Sodium Chloride (D5-Ns -) 1,000 mls @ 42 mls/hr IV ASDIR [facility] Last Admin: 03/13/18 04:55 Dose: Not Given Ceftriaxone Sodium 1 gm/ (Dextrose) 50 mls @ 100 mls/hr IVPB DAILY [facility]; Protocol Insulin Aspart (Novolog Vial Sliding Scale -) 1 vial SQ TIDAC [facility]; Protocol Last Admin: 03/13/18 06:38 Dose: Not Given Lactobacillus Acidophilus (Bacid -) 1 tab PO DAILY [facility] Multivitamins/Minerals/Vitamin C (Tab-A-Vit -) 1 tab PO DAILY [facility] Last Admin: 03/13/18 09:48 Dose: 1 tab Prednisone (Deltasone -) 5 mg PO DAILY [facility] Last Admin: 03/13/18 09:48 Dose: 5 mg Rivaroxaban (Xarelto -) 20 mg PO DAILY [facility] Sertraline HCl (Zoloft -) 25 mg PO BID [facility] Last Admin: 03/13/18 09:48 Dose: 25 mg Tramadol HCl (Ultram -) 50 mg PO Q8H PRN PRN Reason: PAIN LEVEL 6-10 - Objective Vital Signs: Vital Signs Temperature 98.4 F 03/13/18 05:44 Pulse Rate 94 H 03/13/18 05:44 Respiratory Rate 18 03/13/18 05:44 Blood Pressure 152/75 03/13/18 05:44 O2 Sat by Pulse Oximetry (%) 96 03/12/18 21:00 Constitutional: Yes: Well Nourished, No Distress, Calm Cardiovascular: Yes: Regular Rate and Rhythm Respiratory: Yes: WNL, Regular, CTA Bilaterally. No: Accessory Muscle Use, Rhonchi, SOB, Tachypnea, Wheezes Gastrointestinal: Yes: WNL, Normal Bowel Sounds, Soft. No: Distention, Tenderness Genitourinary: Yes: WNL Edema: No Neurological: Yes: WNL, Alert, Oriented Psychiatric: Yes: WNL, Alert, Oriented Labs: CBC, BMP 03/12/18 06:10 03/12/18 06:10 INR, PTT INR 1.13 (0.82-1.09) 03/13/18 06:00 Problem List - Problems (1) Fall Assessment/Plan: s/p fall at home right pelvic fx- no surgical intervention per ortho fall risk precautions pain control- tylenol, tramadol PT as tolerated SNF placement Code(s): W19.XXXA - UNSPECIFIED FALL, INITIAL ENCOUNTER Qualifiers: Encounter type: initial encounter Qualified Code(s): W19.XXXA - Unspecified fall, initial encounter (2) Pelvic fracture Assessment/Plan: as above Code(s): S32.9XXA - FRACTURE OF UNSP PARTS OF LUMBOSACRAL SPINE AND PELVIS, INIT Qualifiers: Encounter type: initial encounter Pelvic bone location: unspecified part of pelvis Fracture type: closed Fracture alignment: nondisplaced Qualified Code(s): S32.9XXA - Fracture of unspecified parts of lumbosacral spine and pelvis, initial encounter for closed fracture (3) UTI (urinary tract infection) Assessment/Plan: asymptomatic UA+, UC pending will tx in the setting of recent fall ceftriaxone day 1 Code(s): N39.0 - URINARY TRACT INFECTION, SITE NOT SPECIFIED Qualifiers: Urinary tract infection type: acute cystitis Hematuria presence: without hematuria Qualified Code(s): N30.00 - Acute cystitis without hematuria (4) Diabetes Assessment/Plan: stable continue metformin/ gabapentin bgm insulin sliding scale Code(s): E11.9 - TYPE 2 DIABETES MELLITUS WITHOUT COMPLICATIONS Qualifiers: Diabetes mellitus type: type 2 Diabetes mellitus half-way insulin use: without half-way use Diabetes mellitus complication status: with neurologic complications Diabetes mellitus complication detail: with unspecified neuropathy Qualified Code(s): E11.40 - Type 2 diabetes mellitus with diabetic neuropathy, unspecified (5) Hypertension Assessment/Plan: controlled continue vasotec Code(s): I10 - ESSENTIAL (PRIMARY) HYPERTENSION Qualifiers: Hypertension type: essential hypertension Qualified Code(s): I10 - Essential (primary) hypertension (6) Hyperlipidemia Assessment/Plan: stable continue statin Code(s): E78.5 - HYPERLIPIDEMIA, UNSPECIFIED (7) Afib Assessment/Plan: chronic rate controlled continue xarelto cardiology following Code(s): I48.91 - UNSPECIFIED ATRIAL FIBRILLATION Qualifiers: Atrial fibrillation type: chronic Qualified Code(s): I48.2 - Chronic atrial fibrillation (8) History of endometrial cancer Assessment/Plan: s/p RT, GHAZALA Code(s): Z85.42 - PERSONAL HISTORY OF MALIGNANT NEOPLASM OF OTH PRT UTERUS (9) Dementia Assessment/Plan: stable monitor Code(s): F03.90 - UNSPECIFIED DEMENTIA WITHOUT BEHAVIORAL DISTURBANCE Qualifiers: Alzheimer's disease onset: early-onset Dementia behavioral disturbance: without behavioral disturbance (10) Degenerative disc disease Assessment/Plan: hx of cervical fx continue prednisone 5mg Code(s): [id number] - Qualifiers: Spinal region: high cervical Qualified Code(s): M50.31 - Other cervical disc degeneration, high cervical region Assessment/Plan Dispo: SNF placement
[2018-03-13] MEDS: RIVAROXABAN 20 MG TABLET PO SCH (10:32)
[2018-03-13] MEDS: ACETAMINOPHEN 325 MG TABLET (FP) PO PRN ×2 (10:32→22:24)
[2018-03-13] MEDS: LACTOBACILLUS ACIDOPHILUS 1 TABLET PO SCH (10:33)
[2018-03-13] MEDS: CEFTRIAXONE 1 GM in DEXTROSE 5%-WATER - 50 ML IVPB SCH (10:33)
[2018-03-13 11:01] LABS: BASO % 0.4 % (0-2.0); EOS % 0.4 % (0-4.5); HEMATOCRIT 35.6 % (32.4-45.2); HEMOGLOBIN 11.7 GM/dL (10.7-15.3); LYMPH % 6.9 % (8-40); MCH 28.6 pg (25.7-33.7); MCHC 32.9 g/dl (32.0-36.0); MEAN CELL VOLUME 86.8 fl (80-96); MONO % 8.8 % (3.8-10.2); NEUT % 83.5 % (42.8-82.8); PLATELET COUNT 193 K/MM3 (134-434); WHITE BLOOD COUNT 7.6 K/mm3 (4.0-10.0)
[2018-03-13 11:44] LABS: ANION GAP 6 (8-16); BLOOD UREA NITROGEN 9 mg/dL (7-18); CALCIUM 8.4 mg/dL (8.5-10.1); CHLORIDE 104 mmol/L (98-107); CO2 29 mmol/L (21-32); CREATININE 0.6 mg/dL (0.55-1.02); GLUCOSE,RANDOM 229 mg/dL (74-106); POTASSIUM 3.7 mmol/L (3.5-5.1); SODIUM 139 mmol/L (136-145)
[2018-03-13] MEDS ORDERED: INSULIN (NOVOLOG) ASPART 100 UNITS/ML 10ML VIAL ONE ×2 (11:44→20:36)
[2018-03-13] MEDS ORDERED: POTASSIUM CHLORIDE TABS 20 MEQ TABLET.ER (FP) PO ONE (12:15)
--- NOTE | 2018-03-13 16:18 | PN ---
Progress Note (short form) - Note Progress Note: s: feels well today. stable hip pain o: Current Medications Generic Name Dose Route Start Last Admin Trade Name Freq PRN Reason Stop Dose Admin Acetaminophen 650 mg 03/13/18 09:57 03/13/18 10:32 Tylenol - PO 650 mg Q6H PRN Administration PAIN LEVEL 1-5 Atorvastatin Calcium 10 mg 03/12/18 22:00 03/12/18 23:05 Lipitor - PO 10 mg HS JASON Administration Calcium Carbonate/Cholecalciferol 1 tab 03/13/18 10:00 03/13/18 09:48 Os-Tam 500+D - PO 1 tab DAILY JASON Administration Cholecalciferol 2,000 unit 03/13/18 10:00 03/13/18 09:48 Vitamin D3 - PO 2,000 unit DAILY JASON Administration Enalapril Maleate 20 mg 03/12/18 12:30 03/13/18 09:48 Vasotec - PO 20 mg BID JASON Administration Gabapentin 100 mg 03/12/18 10:00 03/13/18 09:48 Neurontin - PO 100 mg BID JASON Administration Ceftriaxone Sodium 1 gm/ 50 mls @ 100 mls/hr 03/13/18 11:00 03/13/18 10:33 Dextrose IVPB 100 mls/hr DAILY J[facility] Administration Protocol Insulin Aspart 1 vial 03/12/18 16:30 03/13/18 11:49 Novolog Vial Sliding Scale - SQ 4 units TIDAC JASON Administration Protocol Lactobacillus Acidophilus 1 tab 03/13/18 10:00 03/13/18 10:33 Bacid - PO 1 tab DAILY [facility] Administration Metformin HCl 1,000 mg 03/13/18 16:30 Glucophage - PO BIDAC [facility] Multivitamins/Minerals/Vitamin C 1 tab 03/13/18 10:00 03/13/18 09:48 Tab-A-Vit - PO 1 tab DAILY [facility] Administration Prednisone 5 mg 03/13/18 10:00 03/13/18 09:48 Deltasone - PO 5 mg DAILY [facility] Administration Rivaroxaban 20 mg 03/13/18 10:15 03/13/18 10:32 Xarelto - PO 20 mg DAILY [facility] Administration Sertraline HCl 25 mg 03/12/18 10:00 03/13/18 09:48 Zoloft - PO 25 mg BID [facility] Administration Tramadol HCl 50 mg 03/13/18 10:15 Ultram - PO Q8H PRN PAIN LEVEL 6-10 Physical Exam Vital Signs: Vital Signs Period Temp Pulse Resp BP Sys/Castelan Pulse Ox Last 24 Hr 98.4 F-99.5 F 66-94 18-20 117-155/53-83 96-96 Constitutional: Yes: Well Nourished, No Distress Eyes: Yes: WNL HENT: Yes: WNL Neck: Yes: WNL Cardiovascular: Yes: Regular Rate and Rhythm Respiratory: Yes: WNL Gastrointestinal: Yes: WNL Musculoskeletal: Yes: Other (Right hip pain) Extremities: Yes: WNL Edema: No Labs: Laboratory Results - last 24 hr 03/12/18 03/13/18 03/13/18 16:36 06:00 06:38 WBC RBC Hgb Hct MCV MCH MCHC RDW Plt Count MPV Absolute Neuts (auto) Neutrophils % Lymphocytes % Monocytes % Eosinophils % Basophils % Nucleated RBC % PT with INR 12.80 INR 1.13 Sodium Potassium Chloride Carbon Dioxide Anion Gap BUN Creatinine Creat Clearance w eGFR POC Glucometer 185 149 Random Glucose Calcium 03/13/18 03/13/18 03/13/18 10:38 10:38 11:26 WBC 7.6 RBC 4.10 Hgb 11.7 Hct 35.6 MCV 86.8 MCH 28.6 MCHC 32.9 RDW 14.0 Plt Count 193 MPV 9.0 Absolute Neuts (auto) 6.3 Neutrophils % 83.5 H Lymphocytes % 6.9 L D Monocytes % 8.8 Eosinophils % 0.4 Basophils % 0.4 Nucleated RBC % 0 PT with INR INR Sodium 139 Potassium 3.7 Chloride 104 Carbon Dioxide 29 Anion Gap 6 L BUN 9 Creatinine 0.6 Creat Clearance w eGFR > 60 POC Glucometer 234 Random Glucose 229 H Calcium 8.4 L Assessment/Plan 87 yo F known AF on NOAC Now s/p fall with right mildly displaced fracture 1) Hip Fracture -Stable from cardiovascular perspective - Evaluated by Ortho recommended no intervention, start weight wearing ambulation, plans to go to rehab - continue xarelto - AFib is well controlled - Need re-discussion of risks/benefits of AC with Dr. Antunez and family in her given frequent falls as outpatient
[2018-03-13] MEDS: metFORMIN HCL 500 MG TABLET (FP) PO SCH (16:44)
[2018-03-13] MEDS: POLYMYXIN B SULFATE/TMP 10 ML OPHTHALMIC SOLUTION OS SCH (17:06)
[2018-03-13] MEDS ORDERED: POLYMYXIN B SULFATE/TMP 10 ML OPHTHALMIC SOLUTION OS SCH (18:00)
[2018-03-13] MEDS: ATORVASTATIN CA 40 MG TABLET (FP) PO SCH (22:21)
[2018-03-14] MEDS: POLYMYXIN B SULFATE/TMP 10 ML OPHTHALMIC SOLUTION OS SCH ×4 (01:05→17:58)
[2018-03-14] MEDS: oxyCODONE HCL 5 MG TABLET PO PRN ×2 (02:59→14:36)
[2018-03-14] MEDS: metFORMIN HCL 500 MG TABLET (FP) PO SCH ×2 (06:29→17:57)
[2018-03-14] MEDS: INSULIN SLIDING SCALE (NOVOLOG) 1 VIAL SQ SCH ×3 (06:30→17:12)
[2018-03-14 07:24] LABS: BASO % 0.4 % (0-2.0); EOS % 1.3 % (0-4.5); HEMATOCRIT 32.6 % (32.4-45.2); HEMOGLOBIN 10.9 GM/dL (10.7-15.3); LYMPH % 14.1 % (8-40); MCH 28.7 pg (25.7-33.7); MCHC 33.4 g/dl (32.0-36.0); MEAN CELL VOLUME 86.1 fl (80-96); MEAN PLT VOLUME 8.8 fl (7.5-11.1); MONO % 9.9 % (3.8-10.2); NEUT % 74.3 % (42.8-82.8); PLATELET COUNT 182 K/MM3 (134-434); RBC 3.79 M/mm3 (3.60-5.2); RDW 14.4 % (11.6-15.6); WHITE BLOOD COUNT 6.8 K/mm3 (4.0-10.0)
[2018-03-14 07:49] LABS: ANION GAP 9 (8-16); BLOOD UREA NITROGEN 10 mg/dL (7-18); CALCIUM 8.8 mg/dL (8.5-10.1); CHLORIDE 108 mmol/L (98-107); CO2 26 mmol/L (21-32); CREATININE 0.5 mg/dL (0.55-1.02); GLUCOSE,RANDOM 118 mg/dL (74-106); POTASSIUM 4.1 mmol/L (3.5-5.1); SODIUM 143 mmol/L (136-145)
[2018-03-14] MEDS ORDERED: cefTRIAXone SODIUM 1 GM VIAL ONE (09:09)
[2018-03-14] MEDS ORDERED: DEXTROSE 5%-WATER - 50 ML IVPB ONE (09:09)
[2018-03-14] MEDS: CEFTRIAXONE 1 GM in DEXTROSE 5%-WATER - 50 ML IVPB SCH (09:41)
[2018-03-14] MEDS: GABAPENTIN 100 MG CAPSULE (FP) PO SCH ×2 (09:41→22:24)
[2018-03-14] MEDS: CHOLECALCIFEROL (VITAMIN D3) 1,000 UNIT TABLET (FP) PO SCH (09:41)
[2018-03-14] MEDS: predniSONE 5 MG TABLET (UD) PO SCH (09:41)
[2018-03-14] MEDS: RIVAROXABAN 20 MG TABLET PO SCH (09:41)
[2018-03-14] MEDS: MULTIVITAMINS (DAILY MVI) TABLET (FP) PO SCH (09:41)
[2018-03-14] MEDS: SERTRALINE HCL 25 MG TABLET (FP) PO SCH ×2 (09:41→22:24)
[2018-03-14] MEDS: ENALAPRIL MALEATE 10 MG TABLET (FP) PO SCH ×2 (09:41→22:24)
[2018-03-14] MEDS: LACTOBACILLUS ACIDOPHILUS 1 TABLET PO SCH (09:42)
[2018-03-14] MEDS: CALCIUM 500MG/VIT-D 200 UNITS COMBO TABLET (FP) PO SCH (09:42)
--- NOTE | 2018-03-14 11:11 | PN ---
Progress Note, Physician Chief Complaint: Pt lying in bed in no acute distress. reports right pelvic pain is tolerable. denies any chest pain, sob, n/v/d - Current Medication List Current Medications: Active Medications Acetaminophen (Tylenol -) 650 mg PO Q6H [facility] Atorvastatin Calcium (Lipitor -) 10 mg PO HS [facility] Last Admin: 03/13/18 22:21 Dose: 10 mg Calcium Carbonate/Cholecalciferol (Os-Tam 500+D -) 1 tab PO DAILY [facility] Last Admin: 03/14/18 09:42 Dose: 1 tab Cholecalciferol (Vitamin D3 -) 2,000 unit PO DAILY [facility] Last Admin: 03/14/18 09:41 Dose: 2,000 unit Enalapril Maleate (Vasotec -) 20 mg PO BID [facility] Last Admin: 03/14/18 09:41 Dose: 20 mg Gabapentin (Neurontin -) 100 mg PO BID [facility] Last Admin: 03/14/18 09:41 Dose: 100 mg Ceftriaxone Sodium 1 gm/ (Dextrose) 50 mls @ 100 mls/hr IVPB DAILY [facility]; Protocol Last Admin: 03/14/18 09:41 Dose: 100 mls/hr Insulin Aspart (Novolog Vial Sliding Scale -) 1 vial SQ TIDAC [facility]; Protocol Last Admin: 03/14/18 06:30 Dose: Not Given Lactobacillus Acidophilus (Bacid -) 1 tab PO DAILY [facility] Last Admin: 03/14/18 09:42 Dose: 1 tab Metformin HCl (Glucophage -) 1,000 mg PO BIDAC [facility] Last Admin: 03/14/18 06:29 Dose: 1,000 mg Multivitamins/Minerals/Vitamin C (Tab-A-Vit -) 1 tab PO DAILY [facility] Last Admin: 03/14/18 09:41 Dose: 1 tab Oxycodone HCl (Roxicodone -) 2.5 mg PO Q6H PRN PRN Reason: PAIN LEVEL 7 - 10 Last Admin: 03/14/18 02:59 Dose: 2.5 mg Polymyxin/Trimethoprim Sulfate (Polytrim Opthalmic Solution -) 1 drop OS Q6H [facility] Last Admin: 03/14/18 06:29 Dose: 1 drop Prednisone (Deltasone -) 5 mg PO DAILY [facility] Last Admin: 03/14/18 09:41 Dose: 5 mg Rivaroxaban (Xarelto -) 20 mg PO DAILY [facility] Last Admin: 03/14/18 09:41 Dose: 20 mg Sertraline HCl (Zoloft -) 25 mg PO BID [facility] Last Admin: 03/14/18 09:41 Dose: 25 mg Tramadol HCl (Ultram -) 50 mg PO Q8H PRN PRN Reason: PAIN LEVEL 4 - 6 - Objective Vital Signs: Vital Signs Temperature 98.5 F 03/14/18 10:00 Pulse Rate 87 03/14/18 10:00 Respiratory Rate 20 03/14/18 10:00 Blood Pressure 158/75 03/14/18 10:00 O2 Sat by Pulse Oximetry (%) 97 03/13/18 21:00 Constitutional: Yes: Well Nourished, No Distress, Calm Cardiovascular: Yes: WNL, Regular Rate and Rhythm. No: Gallop, Murmur Respiratory: Yes: WNL, Regular, CTA Bilaterally. No: Accessory Muscle Use, Rales, Rhonchi, SOB, Tachypnea, Wheezes Gastrointestinal: Yes: WNL, Normal Bowel Sounds, Soft. No: Distention, Tenderness Genitourinary: Yes: WNL Edema: No Neurological: Yes: WNL, Alert, Oriented Psychiatric: Yes: WNL, Alert, Oriented Labs: CBC, BMP 03/14/18 06:00 03/14/18 06:00 INR, PTT INR 1.13 (0.82-1.09) 03/13/18 06:00 Problem List - Problems (1) Fall Code(s): W19.XXXA - UNSPECIFIED FALL, INITIAL ENCOUNTER Qualifiers: Encounter type: initial encounter Qualified Code(s): W19.XXXA - Unspecified fall, initial encounter (2) Pelvic fracture Code(s): S32.9XXA - FRACTURE OF UNSP PARTS OF LUMBOSACRAL SPINE AND PELVIS, INIT Qualifiers: Encounter type: initial encounter Pelvic bone location: unspecified part of pelvis Fracture type: closed Fracture alignment: nondisplaced Qualified Code(s): S32.9XXA - Fracture of unspecified parts of lumbosacral spine and pelvis, initial encounter for closed fracture (3) UTI (urinary tract infection) Code(s): N39.0 - URINARY TRACT INFECTION, SITE NOT SPECIFIED Qualifiers: Urinary tract infection type: acute cystitis Hematuria presence: without hematuria Qualified Code(s): N30.00 - Acute cystitis without hematuria (4) Diabetes Code(s): E11.9 - TYPE 2 DIABETES MELLITUS WITHOUT COMPLICATIONS Qualifiers: Diabetes mellitus type: type 2 Diabetes mellitus long-term insulin use: without oil heaterman use Diabetes mellitus complication status: with neurologic complications Diabetes mellitus complication detail: with unspecified neuropathy Qualified Code(s): E11.40 - Type 2 diabetes mellitus with diabetic neuropathy, unspecified (5) Hypertension Code(s): I10 - ESSENTIAL (PRIMARY) HYPERTENSION Qualifiers: Hypertension type: essential hypertension Qualified Code(s): I10 - Essential (primary) hypertension (6) Hyperlipidemia Code(s): E78.5 - HYPERLIPIDEMIA, UNSPECIFIED (7) Afib Code(s): I48.91 - UNSPECIFIED ATRIAL FIBRILLATION Qualifiers: Atrial fibrillation type: chronic Qualified Code(s): I48.2 - Chronic atrial fibrillation (8) History of endometrial cancer Code(s): Z85.42 - PERSONAL HISTORY OF MALIGNANT NEOPLASM OF OTH PRT UTERUS (9) Dementia Code(s): F03.90 - UNSPECIFIED DEMENTIA WITHOUT BEHAVIORAL DISTURBANCE Qualifiers: Alzheimer's disease onset: early-onset Dementia behavioral disturbance: without behavioral disturbance (10) Degenerative disc disease Code(s): [id number] - Qualifiers: Spinal region: high cervical Qualified Code(s): M50.31 - Other cervical disc degeneration, high cervical region (11) Conjunctivitis, left eye Code(s): H10.9 - UNSPECIFIED CONJUNCTIVITIS Qualifiers: Conjunctivitis type: acute Acute conjunctivitis type: bacterial Qualified Code(s): H10.32 - Unspecified acute conjunctivitis, left eye Assessment/Plan (1) Fall Assessment/Plan: s/p fall at home right pelvic fx- no surgical intervention per ortho fall risk precautions pain control- tylenol, tramadol PT as tolerated SNF placement Code(s): W19.XXXA - UNSPECIFIED FALL, INITIAL ENCOUNTER Qualifiers: Encounter type: initial encounter Qualified Code(s): W19.XXXA - Unspecified fall, initial encounter (2) Pelvic fracture Assessment/Plan: as above Code(s): S32.9XXA - FRACTURE OF UNSP PARTS OF LUMBOSACRAL SPINE AND PELVIS, INIT Qualifiers: Encounter type: initial encounter Pelvic bone location: unspecified part of pelvis Fracture type: closed Fracture alignment: nondisplaced Qualified Code(s): S32.9XXA - Fracture of unspecified parts of lumbosacral spine and pelvis, initial encounter for closed fracture (3) UTI (urinary tract infection) Assessment/Plan: asymptomatic, uncomplicated UA+, UC w/ ecoli will tx in the setting of recent fall ceftriaxone day 2 Code(s): N39.0 - URINARY TRACT INFECTION, SITE NOT SPECIFIED Qualifiers: Urinary tract infection type: acute cystitis Hematuria presence: without hematuria Qualified Code(s): N30.00 - Acute cystitis without hematuria (4) Diabetes Assessment/Plan: stable continue metformin/ gabapentin bgm insulin sliding scale Code(s): E11.9 - TYPE 2 DIABETES MELLITUS WITHOUT COMPLICATIONS Qualifiers: Diabetes mellitus type: type 2 Diabetes mellitus long-term insulin use: without oil heaterman use Diabetes mellitus complication status: with neurologic complications Diabetes mellitus complication detail: with unspecified neuropathy Qualified Code(s): E11.40 - Type 2 diabetes mellitus with diabetic neuropathy, unspecified (5) Hypertension Assessment/Plan: controlled continue vasotec Code(s): I10 - ESSENTIAL (PRIMARY) HYPERTENSION Qualifiers: Hypertension type: essential hypertension Qualified Code(s): I10 - Essential (primary) hypertension (6) Hyperlipidemia Assessment/Plan: stable continue statin Code(s): E78.5 - HYPERLIPIDEMIA, UNSPECIFIED (7) Afib Assessment/Plan: chronic rate controlled continue xarelto cardiology following Code(s): I48.91 - UNSPECIFIED ATRIAL FIBRILLATION Qualifiers: Atrial fibrillation type: chronic Qualified Code(s): I48.2 - Chronic atrial fibrillation (8) History of endometrial cancer Assessment/Plan: s/p RT, GHAZALA Code(s): Z85.42 - PERSONAL HISTORY OF MALIGNANT NEOPLASM OF OTH PRT UTERUS (9) Dementia Assessment/Plan: early, stable neurology consult outpt monitor Code(s): F03.90 - UNSPECIFIED DEMENTIA WITHOUT BEHAVIORAL DISTURBANCE Qualifiers: Alzheimer's disease onset: early-onset Dementia behavioral disturbance: without behavioral disturbance (10) Degenerative disc disease Assessment/Plan: hx of cervical fx continue prednisone 5mg Code(s): [id number] - Qualifiers: Spinal region: high cervical Qualified Code(s): M50.31 - Other cervical disc degeneration, high cervical region (11) Conjunctivitis, left eye Assessment/Plan: improving continue polymyxin eye drops Code(s): H10.9 - UNSPECIFIED CONJUNCTIVITIS Qualifiers: Conjunctivitis type: acute Acute conjunctivitis type: bacterial Qualified Code(s): H10.32 - Unspecified acute conjunctivitis, left eye Assessment/Plan Dispo: awaiting SNF placement
[2018-03-14] MEDS: ACETAMINOPHEN 325 MG TABLET (FP) PO SCH ×3 (12:00→23:56)
[2018-03-14] MEDS ORDERED: PT OWN MED DRAWER 7, Y5N ONE (19:01)
[2018-03-14] MEDS: ATORVASTATIN CA 40 MG TABLET (FP) PO SCH (22:23)
[2018-03-15] MEDS: POLYMYXIN B SULFATE/TMP 10 ML OPHTHALMIC SOLUTION OS SCH ×3 (00:52→12:26)
[2018-03-15] MEDS: ACETAMINOPHEN 325 MG TABLET (FP) PO SCH ×2 (06:02→10:08)
[2018-03-15] MEDS: metFORMIN HCL 500 MG TABLET (FP) PO SCH (06:04)
[2018-03-15] MEDS: INSULIN SLIDING SCALE (NOVOLOG) 1 VIAL SQ SCH ×2 (06:05→12:10)
[2018-03-15] MEDS ORDERED: cefTRIAXone SODIUM 1 GM VIAL ONE (10:04)
[2018-03-15] MEDS ORDERED: DEXTROSE 5%-WATER - 50 ML IVPB ONE (10:04)
[2018-03-15] MEDS: LACTOBACILLUS ACIDOPHILUS 1 TABLET PO SCH (10:07)
[2018-03-15] MEDS: GABAPENTIN 100 MG CAPSULE (FP) PO SCH (10:08)
[2018-03-15] MEDS: CHOLECALCIFEROL (VITAMIN D3) 1,000 UNIT TABLET (FP) PO SCH (10:08)
[2018-03-15] MEDS: MULTIVITAMINS (DAILY MVI) TABLET (FP) PO SCH (10:08)
[2018-03-15] MEDS: SERTRALINE HCL 25 MG TABLET (FP) PO SCH (10:08)
[2018-03-15] MEDS: RIVAROXABAN 20 MG TABLET PO SCH (10:08)
[2018-03-15] MEDS: predniSONE 5 MG TABLET (UD) PO SCH (10:08)
[2018-03-15] MEDS: ENALAPRIL MALEATE 10 MG TABLET (FP) PO SCH (10:08)
[2018-03-15] MEDS: CALCIUM 500MG/VIT-D 200 UNITS COMBO TABLET (FP) PO SCH (10:09)
[2018-03-15] MEDS: CEFTRIAXONE 1 GM in DEXTROSE 5%-WATER - 50 ML IVPB SCH (10:09)
--- NOTE | 2018-03-15 10:31 | DS ---
Physical Examination Vital Signs: Vital Signs Temperature 98.1 F 03/15/18 06:00 Pulse Rate 99 H 03/15/18 06:00 Respiratory Rate 20 03/15/18 06:00 Blood Pressure 152/75 03/15/18 06:00 O2 Sat by Pulse Oximetry (%) 96 03/14/18 20:48 Constitutional: Yes: Well Nourished, No Distress, Calm Cardiovascular: Yes: Regular Rate and Rhythm. No: Murmur, Rub Respiratory: Yes: WNL, Regular, CTA Bilaterally. No: Accessory Muscle Use, Rales, Rhonchi, SOB, Tachypnea, Wheezes Gastrointestinal: Yes: WNL, Normal Bowel Sounds, Soft. No: Distention, Tenderness Renal/: Yes: WNL Edema: No Neurological: Yes: WNL, Alert, Oriented Psychiatric: Yes: WNL, Alert, Oriented Labs: CBC, BMP 03/14/18 06:00 03/14/18 06:00 Discharge Summary Reason For Visit: FRACTURE OF PELVIS Current Active Problems Afib (Acute) Conjunctivitis, left eye (Acute) Degenerative disc disease (Acute) Dementia (Acute) Fall (Acute) Fall from ground level (Acute) History of endometrial cancer (Acute) Hyperlipidemia (Acute) Paroxysmal atrial fibrillation (Acute) Pelvic fracture (Acute) Pubic ramus fracture (Acute) T2DM (type 2 diabetes mellitus) (Acute) UTI (urinary tract infection) (Acute) Hospital Course: is a 87 year old female admitted s/p fall at home w/ right pelvic fx. Pt evaluated by ortho, no surgical intervention. Pt found to have asymptomatic uti- ecoli in urine, received 3 days of ceftriaxone. Otherwise, vitals stable, pain controlled, labs unremarkable. Pt medically stable for discharge to SNF. f/ u as recommended. Condition: Fair - Instructions Diet, Activity, Other Instructions: resume diet activity as tolerated eye drops x 5 more days f/u as directed Referrals: Jose Antunez MD [Staff Physician] - 1 Week Stoney Evans MD [Staff Physician] - 1 Week (dementia work up- Neurologist ) Jared Zuluaga MD [Primary Care Provider] - 1 Week Disposition: RESIDENTIAL FACILITY - Home Medications Comprehensive Discharge Medication List: Ambulatory Orders Calcium Carbonate/Vitamin D3 [Calcium 600-Vit D3 200 Tablet] 1 each PO DAILY #0 tablet 05/15/12 Cholecalciferol (Vitamin D3) [Vitamin D] 2,000 unit PO DAILY #0 tablet 05/15/12 Multivitamin [Multivitamins] 1 each PO DAILY #0 capsule 05/15/12 Cyanocobalamin [Vitamin B12 -] 1,000 mcg PO DAILY 12/14/14 Tramadol HCl 37.5 mg PO PRN 12/14/14 metFORMIN HCL [Glucophage -] 1,000 mg PO BID 12/14/14 Enalapril Maleate [Vasotec -] 20 mg PO BID 10/15/17 Rivaroxaban [Xarelto -] 20 mg PO DAILY 10/15/17 predniSONE [Deltasone -] 5 mg PO DAILY 10/15/17 Atorvastatin Ca [Lipitor] 10 mg PO HS 03/11/18 Gabapentin 100 mg PO BID 03/11/18 Sertraline HCl 25 mg PO BID 03/11/18 Acetaminophen [Tylenol .Regular Strength -] 650 mg PO Q6H PRN tablet 03/15/18 Polymyxin B Sulfate/Tmp [Polytrim Opthalmic Solution -] 1 drop OS Q6H 5 Days drops 03/15/18 oxyCODONE HCL [Roxicodone -] 2.5 mg PO Q6H PRN tablet MDD 20 03/15/18 traMADol HCL [Ultram -] 50 mg PO Q8H PRN tablet MDD 200 03/15/18
[2018-03-15 14:04] VITALS: BP 143/86; PULSE 94; TEMP 98.1
== END 2018-03-15 16:22 | DRG 536 ==
LOC: JER 18:27 → JERBED 21:47 → J7W 03-12 00:25
PROVIDERS: ADMIT Internal Medicine; ATTEND Internal Medicine
DX: S32.591A Other specified fracture of right pubis, initial encounter for closed fracture (principal); S12.110K Anterior displaced Type II dens fracture, subsequent encounter for fracture with nonunion; N39.0 Urinary tract infection, site not specified; K90.41 Non-celiac gluten sensitivity; H10.32 Unspecified acute conjunctivitis, left eye; M81.0 Age-related osteoporosis without current pathological fracture; I48.0 Paroxysmal atrial fibrillation; N39.490 Overflow incontinence; R91.8 Other nonspecific abnormal finding of lung field; K44.9 Diaphragmatic hernia without obstruction or gangrene; E11.21 Type 2 diabetes mellitus with diabetic nephropathy; N81.10 Cystocele, unspecified; F03.90 Unspecified dementia, unspecified severity, without behavioral disturbance, psychotic disturbance, mood disturbance, and anxiety; I73.9 Peripheral vascular disease, unspecified; M50.31 Other cervical disc degeneration, high cervical region; I27.20 Pulmonary hypertension, unspecified; E86.0 Dehydration; R26.9 Unspecified abnormalities of gait and mobility; E78.00 Pure hypercholesterolemia, unspecified; W18.39XA Other fall on same level, initial encounter; Y93.89 Activity, other specified; Y92.098 Other place in other non-institutional residence as the place of occurrence of the external cause; Z85.42 Personal history of malignant neoplasm of other parts of uterus; Z86.73 Personal history of transient ischemic attack (TIA), and cerebral infarction without residual deficits; Z79.4 Long term (current) use of insulin
CPT/HCPCS: 36415; 70450-TC; 71045-TC-FY; 72125-TC; 72170-TC-FY; 73523-TC-FY; 73560-TC-RT-FY; 73562-TC-RT-FY; 80048; 80053; 81003; 81015; 82550; 82962; 83735; 84100; 84484; 85025; 85610; 85730; 86850; 86900; 86901; 87086; 87186; 90670; 93005; 93010; 97116-GP; 97162-GP; 99284-25; J0131

== ENCOUNTER 2018-12-23 12:38 | Emergency (ER) | payer OTHER, MEDICARE ==
[2018-12-23 12:59] VITALS: BMI 21.5
--- NOTE | 2018-12-23 13:13 | PDOC ---
History of Present Illness - General Chief Complaint: Injury Stated Complaint: FALL HEAD INJURY Time Seen by Provider: 12/23/18 13:10 - History of Present Illness Initial Comments: 12/23/18 13:13 88 yo F with h/o HTN, NIDDM, HLD, A-fib, CVA, endometrial cancer s/p radiation s /p GHAZALA, hip fracture, C2 fracture, dementia who p/w closed head injury s/p fall. Patient reports sitting up in bed and leaning backwards hitting the right side of her head on night stand 1 hour [employer] PT. Patient daughter at bedside reports that patient was home with her who ran upstairs after hearing loud noise , and patient was laying in bed. Patient daughter states pt. with tendency to sit on edge of bed when getting dressed. Denies witnessed convulsions, LOC, bleed, neck or back pain. Now with R sided non pleuritic, anterior-lateral chest wall pain. Patient with longstanding h/o recurrent falls. Patient poor historian d/t baseline dementia. On Xarelto. Patient denies HERNANDES, vision change, palpitations, cough, wheezing, orthopena, PND , leg swelling/pain, N/V, F,C, CP, SOB, urinary complaints, hematuria, BPR, abdominal pain, diarrhea, constipation, lightheadedness, weakness, sensory changes. PMHx: as noted above ROS: as noted Allergies: NKDA Past History - Past Medical History Allergies/Adverse Reactions: Allergies Allergy/AdvReac Type Severity Reaction Status Date / Time lactose Allergy Verified 03/12/18 10:37 codeine [Codeine] AdvReac hyper Verified 03/11/18 18:41 Home Medications: Ambulatory Orders Cholecalciferol (Vitamin D3) [Vitamin D] 2,000 unit PO DAILY #0 tablet 05/15/12 Multivitamin [Multivitamins] 1 each PO DAILY #0 capsule 05/15/12 Cyanocobalamin [Vitamin B12 -] 1,000 mcg PO DAILY 12/14/14 metFORMIN HCL [Glucophage -] 1,000 mg PO BID 12/14/14 Rivaroxaban [Xarelto -] 20 mg PO DAILY 10/15/17 predniSONE [Deltasone -] 5 mg PO DAILY 10/15/17 Atorvastatin Ca [Lipitor] 10 mg PO HS 03/11/18 Gabapentin 100 mg PO BID 03/11/18 Sertraline HCl 25 mg PO DAILY 03/11/18 Acetaminophen [Tylenol .Regular Strength -] 650 mg PO Q6H PRN tablet 03/15/18 Ciprofloxacin HCl [Cipro] 500 mg PO BID 12/23/18 Metoprolol Succinate [Toprol Xl -] 25 mg PO DAILY 12/23/18 traMADol HCL [Ultram -] 50 mg PO BID 12/23/18 Cancer: Yes (endometrial) Cardiac Disorders: Yes COPD: No Dementia: Yes Diabetes: Yes GI Disorders: Yes (gluten intolerance, HIATAL HERNIA) Disorders: Yes (prolapsed bladder, UTI) HTN: Yes Hypercholesterolemia: Yes - Surgical History Appendectomy: Yes - Immunization History Td Vaccination: Yes Immunization Up to Date: No - Suicide/Smoking/Psychosocial Hx Smoking Status: No Smoking History: Former smoker Have you smoked in the past 12 months: No Number of Cigarettes Smoked Daily: 0 Information on smoking cessation initiated: No Hx Alcohol Use: No Drug/Substance Use Hx: No Substance Use Type: None Hx Substance Use Treatment: No Review of Systems - Review of Systems Comments:: 12/23/18 13:27 GENERAL/CONSTITUTIONAL: No fever or chills. No weakness. HEAD, EYES, EARS, NOSE AND THROAT: No change in vision. No ear pain or discharge. No sore throat. CARDIOVASCULAR: No chest pain or shortness of breath RESPIRATORY: No cough, wheezing, or hemoptysis. GASTROINTESTINAL: No nausea, vomiting, diarrhea or constipation. GENITOURINARY: No dysuria, frequency, or change in urination. MUSCULOSKELETAL: + right lateral chest wall pain. No neck or back pain. SKIN: No rash NEUROLOGIC: No headache, vertigo, loss of consciousness, or change in strength/ sensation. ENDOCRINE: No increased thirst. No abnormal weight change HEMATOLOGIC/LYMPHATIC: No anemia, easy bleeding, or history of blood clots. ALLERGIC/IMMUNOLOGIC: No hives or skin allergy. *Physical Exam - Vital Signs Last Vital Signs Temp Pulse Resp BP Pulse Ox 98.2 F 80 17 149/68 98 12/23/18 12:56 12/23/18 12:56 12/23/18 12:56 12/23/18 12:56 12/23/18 12:56 - Physical Exam Comments: 12/23/18 13:29 GENERAL: Awake, alert, oriented, in no acute distress HEAD: No signs of trauma, normocephalic, atraumatic EYES: PERRLA, EOMI, sclera anicteric, conjunctiva clear ENT: Auricles normal inspection, hearing grossly normal, nares patent, oropharynx clear without exudates. Moist mucosa NECK: Normal ROM, supple, no lymphadenopathy, JVD, or masses LUNGS: No distress, speaks full sentences, clear to auscultation bilaterally HEART: Regular rate and rhythm, normal S1 and S2, no murmurs, rubs or gallops, peripheral pulses normal and equal bilaterally. ABDOMEN: Soft, nontender, normoactive bowel sounds. No guarding, no rebound. No masses. + right lateral/anterior chest wall ttp. No obvious bony deformity. EXTREMITIES : Normal inspection, Normal range of motion, no edema. No clubbing or cyanosis. NEUROLOGICAL: Cranial nerves II through XII grossly intact. Normal speech, normal gait, no focal sensorimotor deficits SKIN: Warm, Dry, normal turgor, no rashes or lesions noted ED Treatment Course - LABORATORY CBC & Chemistry Diagram: 12/23/18 14:00 12/23/18 14:00 Medical Decision Making - Medical Decision Making 12/23/18 13:30 88 yo F with h/o HTN, NIDDM, HLD, A-fib, CVA, endometrial cancer s/p radiation s /p GHAZALA, hip fracture, C2 fracture, dementia who p/w closed head injury and right sided anterior-lateral chest wall pain s/p fall. Vitals wnl, AF, A&Ox3. Physical exam notable for R anterior-lateral chest wall ttp, with absent bony deformity or skin change. R/o intracranial hemorrhage, hematoma, skull fracture. No evidence of basilar skull fracture. R/o c-spine injury. Assess for rib fracture.Will provide oral analgesia and reassess. ED Course: Tylenol 650 mg 12/23/18 15:45 CBC,CMP: Unremarkable 12/23/18 16:08 CTH: No acute pathology C-SPINE CT: No acute pathology 12/23/18 16:34 RIB RAD: Unremarkable Stable for d/c with return precautions. *DC/Admit/Observation/Transfer Diagnosis at time of Disposition: Closed head injury Qualifiers: Encounter type: initial encounter Qualified Code(s): S09.90XA - Unspecified injury of head, initial encounter - Discharge Dispostion Condition at time of disposition: Stable Decision to Admit order: No - Referrals Referrals: Jared Zuluaga MD [Primary Care Provider] - - Patient Instructions Printed Discharge Instructions: DI for Closed Head Injury Additional Instructions: Please return to the emergency department with any new or worsening symptoms or concerns. Please follow up with your primary care physician within 72 hours. - Post Discharge Activity
[2018-12-23] MEDS ORDERED: ACETAMINOPHEN 325 MG TABLET (FP) PO ONE (13:28)
[2018-12-23] MEDS ORDERED: ACETAMINOPHEN 325 MG TABLET (FP) ONE (13:49)
[2018-12-23 14:27] LABS: BASO % 0.4 % (0-2.0); EOS % 0.7 % (0-4.5); HEMATOCRIT 40.1 % (32.4-45.2); HEMOGLOBIN 12.9 GM/dL (10.7-15.3); LYMPH % 17.8 % (8-40); MCH 28.6 pg (25.7-33.7); MCHC 32.3 g/dl (32.0-36.0); MEAN CELL VOLUME 88.5 fl (80-96); MEAN PLT VOLUME 8.4 fl (7.5-11.1); MONO % 7.6 % (3.8-10.2); NEUT % 73.5 % (42.8-82.8); PLATELET COUNT 233 K/MM3 (134-434); RBC 4.53 M/mm3 (3.60-5.2); RDW 14.5 % (11.6-15.6); WHITE BLOOD COUNT 7.5 K/mm3 (4.0-10.0)
--- NOTE | 2018-12-23 14:35 | PDOC ---
Documentation entered by Alexa Rockwell SCRIBE, acting as scribe for Jass Curry MD. Jass Curry MD: This documentation has been prepared by the Moiz zamarripa Sammi, SCRIBE, under my direction and personally reviewed by me in its entirety. I confirm that the documentation accurately reflects all work, treatment, procedures, and medical decision making performed by me. Attending Attestation - Resident Resident Name: RedCesarAlberto - ED Attending Attestation I have performed the following: I have examined & evaluated the patient, The case was reviewed & discussed with the resident, I agree w/resident's findings & plan - HPI HPI: 12/23/18 14:29 88-year-old female with history of atrial fibrillation on xarelto, dementia, frequent falls with pelvic fracture in the past presents now brought in by daughter with another fall. Patient states she was seated on her bed, slipped off the bed and onto the ground striking her right head and right ribs, there was no loss of consciousness, her son-in-law went into the room immediately and found her awake. presents now essentially without complaints, mild scalp pain and focal area of pain at her lower R anterior rib. no LOC/syncope, no cp/palp/ sob, she is completing cipro course for UTI diagnosed earlier this week. - Physicial Exam PE: 12/23/18 14:32 Vital signs normal, afebrile Very well-appearing elderly woman ambulating in the emergency department, conversant and without complaints 2 cm tender erythema on the right parietal scalp, no scalp hematoma or underlying bony deformity No C-spine tenderness, full range of motion Heart is irregular with normal rate, lungs are clear Slight discomfort to palpation over the anterior aspect of the distal right 9 floating rib without superimposed swelling or bruising Abdomen is benign No extremity trauma, 5 out of 5 strength, gait is stable - Medical Decision Making 12/23/18 14:33 88-year-old female with history of falls presents with fall, minor head and rib injury, on anticoagulation. Hemodynamically stable, neurologically intact, trauma exam is nonfocal. Completing course of UTI antibiotics, otherwise has been at baseline. Check labs and urinalysis given history of dementia to rule out any underlying metabolic or infectious process CT head/C-spine Right rib x-ray Reassess and dispo accordingly - daughter at bedside, agrees with plan Heart Score/ECG Review #1 ECG reviewed & interpreted by me at: 14:19 General ECG Interpretation: Sinus Rhythm, Normal Rate (78), Normal Intervals ( qtc 421), No acute ischemic changes
[2018-12-23 14:58] LABS: ALBUMIN 3.4 g/dl (3.4-5.0); ALK PHOS 56 U/L (45-117); ANION GAP 6 MMOL/L (8-16); BILIRUBIN,TOTAL 0.4 mg/dL (0.2-1); BLOOD UREA NITROGEN 16 mg/dL (7-18); CALCIUM 9.5 mg/dL (8.5-10.1); CHLORIDE 102 mmol/L (98-107); CO2 29 mmol/L (21-32); CREATININE 0.7 mg/dL (0.55-1.3); GLUCOSE,RANDOM 103 mg/dL (74-106); POTASSIUM 4.7 mmol/L (3.5-5.1); SGOT/AST 13 U/L (15-37); SGPT/ALT 15 U/L (13-61); SODIUM 137 mmol/L (136-145); TOT PROT 6.4 g/dl (6.4-8.2)
[2018-12-23 16:54] VITALS: BP 140/65; PULSE 72; TEMP 97.8
--- NOTE | 2018-12-24 09:19 | EKG ---
Test Reason : Blood Pressure : / mmHG Vent. Rate : 078 BPM Atrial Rate : 078 BPM P-R Int : 176 ms QRS Dur : 078 ms QT Int : 370 ms P-R-T Axes : 049 011 046 degrees QTc Int : 421 ms NORMAL SINUS RHYTHM NORMAL ECG WHEN COMPARED WITH ECG OF 11-MAR-2018 19:21, NO SIGNIFICANT CHANGE WAS FOUND Confirmed by LIBBY ROGER MD ([id number]) on 12/24/2018 9:19:00 AM Referred By: Confirmed By:LIBBY ROGER MD
== END 2018-12-23 16:54 | disposition home or self-care (01) ==
LOC: JER 12:38
DX: S09.8XXA Other specified injuries of head, initial encounter (principal); R07.81 Pleurodynia; W06.XXXA Fall from bed, initial encounter; Z91.81 History of falling; Y93.89 Activity, other specified; Y92.013 Bedroom of single-family (private) house as the place of occurrence of the external cause; I10 Essential (primary) hypertension; E78.5 Hyperlipidemia, unspecified; E11.9 Type 2 diabetes mellitus without complications; Z79.84 Long term (current) use of oral hypoglycemic drugs; I48.91 Unspecified atrial fibrillation; Z79.01 Long term (current) use of anticoagulants; F03.90 Unspecified dementia, unspecified severity, without behavioral disturbance, psychotic disturbance, mood disturbance, and anxiety; Z86.73 Personal history of transient ischemic attack (TIA), and cerebral infarction without residual deficits; Z85.44 Personal history of malignant neoplasm of other female genital organs; Z90.710 Acquired absence of both cervix and uterus; Z90.79 Acquired absence of other genital organ(s); Z90.722 Acquired absence of ovaries, bilateral
CPT/HCPCS: 36415; 70450-TC; 71101-TC-RT-FY; 72125-TC; 80053; 85025; 93005; 93010; 99283-25

== ENCOUNTER 2022-06-30 13:15 | Observation (INO) | payer OTHER, MEDICARE ==
[2022-06-30 14:57] LABS: BASO % 0.3 % (0-2.0); EOS % 0.5 % (0-4.5); HEMOGLOBIN 13.2 GM/dL (10.7-15.3); LYMPH % 12.2 % (8-40); MCH 28.8 pg (25.7-33.7); MCHC 33.1 g/dl (32.0-36.0); MEAN CELL VOLUME 87.1 fl (80-96); MEAN PLT VOLUME 8.2 fl (7.5-11.1); MONO % 8.9 % (3.8-10.2); NEUT % 78.1 % (42.8-82.8); PLATELET COUNT 298 10^3/uL (134-434); RBC 4.59 M/mm3 (3.60-5.2); RDW 14.8 % (11.6-15.6)
[2022-06-30 15:03] LABS: INR 1.1 (0.83-1.09); PROTHROMBIN TIME (PATIENT) 12.7 SEC (9.7-13.0)
[2022-06-30 15:06] LABS: ACTIVATED PTT 29.6 SECONDS (25.2-36.5)
[2022-06-30 15:18] VITALS: BMI 21.5
[2022-06-30 15:18] LABS: CHLORIDE 103 mmol/L (98-107); SODIUM 140 mmol/L (136-145)
[2022-06-30 15:20] LABS: CALCIUM 9.4 mg/dL (8.5-10.1)
[2022-06-30 15:21] LABS: ALBUMIN 3.4 g/dl (3.4-5.0); ANION GAP 9 MMOL/L (8-16); CO2 28 mmol/L (21-32); GLUCOSE,RANDOM 135 mg/dL (74-106)
[2022-06-30 15:24] LABS: CREATININE 0.8 mg/dL (0.55-1.3); SGOT/AST 20 U/L (15-37); SGPT/ALT 17 U/L (13-61)
[2022-06-30 15:26] LABS: BILIRUBIN,TOTAL 0.3 mg/dL (0.2-1); TOT PROT 6.8 g/dl (6.4-8.2)
[2022-06-30 15:27] LABS: ALK PHOS 120 U/L (45-117)
[2022-06-30 15:30] LABS: EPI CELLS 5 /uL (0-25.1); HYALINE CASTS 1 /uL (0-3.1); URINE APPEARANCE CLOUDY; URINE BACTERIA 1794 /uL (0-1359); URINE BILIRUBIN NEGATIVE (NEGATIVE); URINE COLOR DK YELLOW; URINE GLUCOSE (UA) NEGATIVE (NEGATIVE); URINE KETONE NEGATIVE (NEGATIVE); URINE LEUK ESTERASE 2+ (NEGATIVE); URINE NITRITE NEGATIVE (NEGATIVE); URINE PROTEIN 3+ (NEGATIVE); URINE UROBILINOGEN 0.2 mg/dL (0.2-1.0); URINE WBC 2127 /uL (0-25.8)
[2022-06-30] MEDS ORDERED: SODIUM CHLORIDE 1,000 ML IV STA (15:43)
[2022-06-30 15:45] LABS: URINE RBC 136 /uL (0-23.9)
[2022-06-30] MEDS ORDERED: CEFTRIAXONE 1 GM in DEXTROSE 5%-WATER - 100 ML IVPB ONE (15:50)
[2022-06-30] MEDS ORDERED: cefTRIAXone SODIUM 1 GM VIAL ONE (16:50)
[2022-06-30] MEDS ORDERED: ACETAMINOPHEN 325 MG TABLET (FP) PO PRN (16:55)
[2022-06-30] MEDS ORDERED: SODIUM CHLORIDE 1,000 ML IV SCH (17:00)
[2022-06-30] MEDS ORDERED: ATORVASTATIN CA 10 MG TABLET (FP) PO SCH (22:00)
[2022-07-01] MEDS: APIXABAN 2.5 MG TABLET PO SCH ×2 (01:02→09:53)
[2022-07-01] MEDS ORDERED: APIXABAN 2.5 MG TABLET ONE ×2 (01:02→09:48)
[2022-07-01] MEDS ORDERED: ATORVASTATIN CA 10 MG TABLET (FP) ONE (01:02)
[2022-07-01 07:19] LABS: BASO % 0.6 % (0-2.0); EOS % 0.4 % (0-4.5); HEMATOCRIT 38.4 % (32.4-45.2); HEMOGLOBIN 12.9 GM/dL (10.7-15.3); LYMPH % 15.9 % (8-40); MCHC 33.7 g/dl (32.0-36.0); MEAN PLT VOLUME 8.4 fl (7.5-11.1); NEUT % 75.1 % (42.8-82.8); PLATELET COUNT 316 10^3/uL (134-434); RBC 4.47 M/mm3 (3.60-5.2); RDW 14.8 % (11.6-15.6); WHITE BLOOD COUNT 8.8 K/mm3 (4.0-10.0)
[2022-07-01 07:51] LABS: CALCIUM 9.6 mg/dL (8.5-10.1)
[2022-07-01 07:52] LABS: BLOOD UREA NITROGEN 10.4 mg/dL (7-18); MAGNESIUM 1.8 mg/dL (1.8-2.4)
[2022-07-01 07:55] LABS: CREATININE 0.6 mg/dL (0.55-1.3); PHOSPHOROUS 3.3 mg/dL (2.5-4.9)
[2022-07-01] MEDS: INSULIN SLIDING SCALE (NOVOLOG) 1 VIAL SQ SCH ×2 (08:00→12:34)
[2022-07-01] MEDS ORDERED: METOPROLOL TARTRATE 25 MG TABLET (FP) ONE (09:48)
[2022-07-01] MEDS ORDERED: ENALAPRIL MALEATE 5 MG TABLET ONE (09:48)
[2022-07-01 09:53] VITALS: BP 167/76; PULSE 71; RESP 18; TEMP 98.3
[2022-07-01] MEDS ORDERED: ENOXAPARIN NA (PORCINE) 40 MG/0.4 ML DISP.SYRIN SQ SCH (10:00)
[2022-07-01] MEDS ORDERED: CEFTRIAXONE 1 GM in DEXTROSE 5%-WATER - 50 ML IVPB SCH (10:00)
[2022-07-01] MEDS ORDERED: ENALAPRIL MALEATE 10 MG TABLET PO SCH (10:00)
[2022-07-01] MEDS ORDERED: metoPROLOL SUCCINATE 25 MG TAB.SR.24H (FP) PO SCH (10:00)
== END 2022-07-01 13:40 | disposition home or self-care (01) ==
LOC: JER 13:15 → JERBED 14:56
PROVIDERS: ADMIT Internal Medicine; ATTEND Internal Medicine
PROC: 3E03329 Introduction of Other Anti-infective into Peripheral Vein, Percutaneous Approach (ICD-10-PCS; principal; 2022-06-30)
PROC: 3E0337Z Introduction of Electrolytic and Water Balance Substance into Peripheral Vein, Percutaneous Approach (ICD-10-PCS; 2022-06-30)
PROC: 3E013VG Introduction of Insulin into Subcutaneous Tissue, Percutaneous Approach (ICD-10-PCS; 2022-06-30)
DX: R55 Syncope and collapse (principal); N39.0 Urinary tract infection, site not specified; R19.7 Diarrhea, unspecified; I10 Essential (primary) hypertension; F03.90 Unspecified dementia, unspecified severity, without behavioral disturbance, psychotic disturbance, mood disturbance, and anxiety; I48.91 Unspecified atrial fibrillation; E11.9 Type 2 diabetes mellitus without complications; E78.5 Hyperlipidemia, unspecified; Z85.89 Personal history of malignant neoplasm of other organs and systems; Z87.891 Personal history of nicotine dependence; Z86.73 Personal history of transient ischemic attack (TIA), and cerebral infarction without residual deficits; Z79.84 Long term (current) use of oral hypoglycemic drugs
CPT/HCPCS: 36415; 70450-TC; 71045-TC-FY; 80048; 80053; 81003; 82553; 82962; 83735; 84100; 84443; 84484; 85025; 85610; 85730; 87040; 87086; 93005; 93010; 96365; 96372; 99285-25; C9803-CS; G0378; U0003; U0005